=== PATIENT | male | born 1955 | race Two or more races ===

== ENCOUNTER 2018-12-19 15:28 | Inpatient (IN) | payer BC, MEDICARE ==
[2018-12-19] MEDS ORDERED: IV FLUID CONTINUATION 1,000 ML IV ONE (15:40)
[2018-12-19] MEDS ORDERED: LIDOCAINE 1% INJ 10MG/ML (20 ML MDV) SQ ONE (15:50)
[2018-12-19] MEDS ORDERED: MIDAZOLAM 2 MG/2 ML VIAL IVP ONE ×5 (15:55→18:18)
[2018-12-19] MEDS ORDERED: MIDAZOLAM 2 MG/2 ML VIAL IV ONE ×4 (15:55→17:38)
[2018-12-19] MEDS ORDERED: FUROSEMIDE 10 MG/ML 4 ML VIAL IV ONE (15:56)
[2018-12-19] MEDS ORDERED: ONDANSETRON 4 MG/2 ML VIAL IVP ONE ×2 (16:00→16:10)
[2018-12-19] MEDS ORDERED: MORPHINE SULFATE 4 MG/ML SYRINGE IV ONE (16:05)
--- NOTE | 2018-12-19 16:06 | P.CRDCN ---
History of Present Illness History of present illness: This is Dr. Caputo dictating a consult on this patient The patient was interviewed and examined by me IMPRESSION / ASSESSMENT: Subacute ST elevation inferior wall MD with lateral and posterior extension Symptoms for the last 48 hours or more with nausea and vomiting and heartburn epigastric Symptoms started on Thursday Patient went to the urgent care today then transferred to [facility] and then subsequently transferred to [facility] Blood pressure stable per patient is tachycardic Type 2 diabetes on insulin Chronic kidney disease with stage IV chronic kidney disease Hypertension PLAN: Urgent coronary angiography. Discussed with ER physician at [facility] discussed with Dr. Andrea CHÁVEZ Since Thursday the patient has been experiencing heartburn somewhat different from the usual heartburn along with nausea and vomiting and some running stools No chest discomfort no dizziness lightheadedness no palpitations He thought was his usual heartburn but then as the discomfort became worse, today he went to the urgent care. He is visiting from the [facility] Subsequently transferred to [facility] He was evaluated in the ER. EKG was obtained. Troponin sent. Troponin of 19 Thereafter received a call from the ER physician there Patient transferred to [facility] and taken directly to the [facility] ROS: No fever chills or rigors, no cough, phlegm or expectoration, no nausea, vomiting or diarrhea, no hematuria, dysuria, no musculoskeletal complaints, no strokes or seizures, no skin lesions. EXAMINATION: Blood pressure stable but heart rate between 120 to 1:30 beats a minute sinus tachycardia Breath sounds are reduced bilaterally but no rhonchi I don't hear any crackles Heart sounds are soft there's no murmur no rub Abdomen is soft no tenderness Extremities warm REVIEW OF LABS, ECG & MEDICAL DATA Twelve-lead ECG shows sinus tachycardia [address] elevation in the inferior leads with Q waves inferiorly, ST depression V1 and V2 V3 as well as lead 1 and aVL consistent with inferior ST elevation with Q waves in inferior leads Labs reviewed sodium 137 potassium 3.8 BUN 26 creatinine 2.4 was 244 Patient is ALLERGIC to JOVANY inhibitor as it currently on losartan Myalgia with atorvastatin, takes Crestor 5 mg daily Medications and Allergies Home Medications Medication Instructions Recorded Confirmed Type ALPRAZolam [Xanax] 0.25 mg PO HS 12/19/18 12/19/18 History Aspirin EC [Ecotrin Low Dose] 81 mg PO Q48H 12/19/18 12/19/18 History Escitalopram [Lexapro] 10 mg PO DAILY 12/19/18 12/19/18 History Fluticasone Nasal [place] [Flonase 1 spray EA NOSTRIL DAILY 12/19/18 12/19/18 History Nasal [place]] Furosemide [Lasix] 40 mg PO BID 12/19/18 12/19/18 History Insulin Aspart [NovoLOG Flexpen] 6 units SQ AC-TID 12/19/18 12/19/18 History Insulin Glargine,Hum.rec.anlog 36 unit SQ DAILY 12/19/18 12/19/18 History [Lantus Solostar] Losartan [Cozaar] 50 mg PO DAILY 12/19/18 12/19/18 History Metoprolol Tartrate [Lopressor] 100 mg PO BID 12/19/18 12/19/18 History Omeprazole [PriLOSEC] 20 mg PO DAILY 12/19/18 12/19/18 History Potassium Chloride ER [K-Dur 20] 20 meq PO DAILY 12/19/18 12/19/18 History Rosuvastatin Calcium [Crestor] 5 mg PO HS 12/19/18 12/19/18 History Saxagliptin HCl [Onglyza] 5 mg PO DAILY 12/19/18 12/19/18 History amLODIPine [Norvasc] 10 mg PO DAILY 12/19/18 12/19/18 History Allergies Allergy/AdvReac Type Severity Reaction Status Date / Time No Known Allergies Allergy Unverified 12/19/18 15:37
[2018-12-19] MEDS ORDERED: SODIUM CHLORIDE 0.9% 500 ML 500 ML IV ONE ×2 (16:20→18:50)
[2018-12-19] MEDS ORDERED: HEPARIN SODIUM 1,000 UN/ML (10ML VL) IVPB ONE (16:30)
[2018-12-19 16:41] LABS: ABG Base Excess -13.2 mmol/L; ABG HCO3 15 mmol/L (21-25); ABG Oxygen Saturation 89.8 % (94-97); ABG PCO2 43 mmHg (35-45); ABG PO2 78 mmHg (83-108); ABG TCO2 17 mmol/L (19-24)
[2018-12-19 16:49] LABS: ABG PH 7.16 (7.35-7.45)
[2018-12-19] MEDS ORDERED: SODIUM BICARB 8.4% 50 ML SYR (1 MEQ/ML) IV ONE (16:50)
[2018-12-19] MEDS ORDERED: SODIUM BICARB 8.4% 50 ML VIAL (1 MEQ/ML) IV ONE (16:50)
[2018-12-19] MEDS ORDERED: HEPARIN SODIUM 1,000 UN/ML (10ML VL) IV ONE (16:50)
[2018-12-19] MEDS ORDERED: NITROGLYCERIN 1000MCG/10ML SYRINGE INTRACORON ONE (17:02)
[2018-12-19] MEDS ORDERED: NOREPINEPHRINE 4 MG in SODIUM CHLORIDE 0.9% 250 ML IV ONE (17:09)
[2018-12-19] MEDS ORDERED: niCARdipine Syringe (1,000 mcg/10 mL) INTRACORON ONE (17:11)
[2018-12-19] MEDS ORDERED: IOPAMIDOL-370 150ML BTL INJ ONE (17:31)
[2018-12-19] MEDS ORDERED: IOPAMIDOL-370 50ML BTL INJ ONE (17:52)
[2018-12-19] MEDS ORDERED: NITROGLYCERIN SL TABS 0.4 MG TAB SUBLINGUAL PRN (18:01)
[2018-12-19] MEDS ORDERED: ATROPINE SULFATE 0.1 MG/ML 10ML SYRINGE IV PRN (18:01)
[2018-12-19] MEDS ORDERED: MAG HYDROX/AL HYDROX/SIMETH 30 ML CUP PO PRN (18:01)
[2018-12-19] MEDS ORDERED: RX INFO: IV CONTRAST WAS GIVEN 1 EACH MISC MISCELLANE PRN (18:01)
[2018-12-19] MEDS ORDERED: SODIUM CHLORIDE 0.9% 1,000 ML IV SCH (18:15)
[2018-12-19] MEDS ORDERED: CLOPIDOGREL 75 MG TAB OG-TUBE ONE (18:20)
[2018-12-19] MEDS ORDERED: NALOXONE 0.4 MG/ML 1 ML VIAL IV PRN (18:37)
[2018-12-19] MEDS ORDERED: IPRATROPIUM-ALBUTEROL 3 ML NEB INHALATION PRN (18:37)
[2018-12-19 19:20] LABS: Glucose,Whole Blood 297 mg/dL (75-99)
[2018-12-19] MEDS ORDERED: WATER IV ONE (19:30)
[2018-12-19] MEDS ORDERED: DEXTROSE IV ONE (19:30)
[2018-12-19] MEDS ORDERED: HEPARIN SODIUM IV ONE (19:30)
--- NOTE | 2018-12-19 19:34 | XR ---
EXAMINATION TYPE: XR chest 1V portable DATE OF EXAM: 12/19/2018 COMPARISON: NONE HISTORY: Intubation TECHNIQUE: Single frontal view of the chest is obtained. FINDINGS: Endotracheal tube and NG tube are overlying appropriate positions, distal tip the NG tube not included on exam. Exam is expiratory. Perihilar airspace disease is present. No evident pneumotho rax. There are overlying leads present. Patchy bibasilar density likely reflects subsegmental atelect asis. Patient is rotated. IMPRESSION: Correlate for congestive heart failure, pneumonia, pulmonary edema.
[2018-12-19] MEDS: BUDESONIDE 0.5 MG/2 ML NEBU INHALATION SCH (19:41)
[2018-12-19] MEDS: IPRATROPIUM-ALBUTEROL 3 ML NEB INHALATION SCH ×2 (19:41→23:07)
[2018-12-19 19:57] LABS: ABG Base Excess -0.5 mmol/L; ABG HCO3 25 mmol/L (21-25); ABG Oxygen Saturation 98.8 % (94-97); ABG PCO2 41 mmHg (35-45); ABG PH 7.39 (7.35-7.45); ABG PO2 144 mmHg (83-108); ABG TCO2 26 mmol/L (19-24)
[2018-12-19 20:02] LABS: Basophils % (A) 0 %; Eosinophils # (A) 0.3 k/uL (0-0.7); Eosinophils % (A) 2 %; HGB 11.1 gm/dL (13.0-17.5); Lymphocytes # (A) 0.4 k/uL (1.0-4.8); Lymphocytes % (A) 2 %; MCH 29.3 pg (25.0-35.0); MCHC 34.9 g/dL (31.0-37.0); MCV 84.1 fL (80.0-100.0); Mean Platelet Volume 8.3; Monocytes # (A) 0.7 k/uL (0-1.0); Monocytes % (A) 4 %; Neutrophils # (A) 16.3 k/uL (1.3-7.7); Neutrophils % (A) 91 %; Platelet Count 179 k/uL (150-450); RDW 13.9 % (11.5-15.5); WBC 17.9 k/uL (3.8-10.6)
[2018-12-19 20:10] LABS: Magnesium 1.8 mg/dL (1.6-2.3); Phosphorus 3.1 mg/dL (2.5-4.5); Potassium 4.5 mmol/L (3.5-5.1)
[2018-12-19] MEDS: HEPARIN SODIUM,PORCINE 12,500 UNIT in DEXTROSE 5% IN WATER 500 ML IV SCH ×2 (21:49)
--- NOTE | 2018-12-19 22:23 | CC ---
CARDIAC CATHETERIZATION REPORT DATE OF SERVICE: 12/19/2018. PERFORMING PHYSICIAN: Christopher Mendez MD, parent trainer. PROCEDURE PERFORMED: 1. Selective right and left coronary angiogram. 2. Left heart catheterization. 3. Successful placement of Impella in the left ventricle. 4. Selective bilateral common femoral artery angiogram. 5. Successful stenting of the distal left circumflex using 2.5 x 28 mm Xience drug- eluting stent with an excellent angiographic result and reduction of stenosis from 100% to 0%. 6. Successful stenting of the proximal left anterior descending artery using 3.0 x 18 mm Xience drug-eluting stent with an excellent angiographic result and reduction of stenosis from 99% to 0%. INDICATIONS: This is a 63-year-old gentleman who was visiting from [place] with history of diabetes, hypertension, dyslipidemia, and chronic kidney disease, presented to the emergency room at [address] complaining of symptoms of epigastric discomfort associated with nausea and vomiting. He was ruled in for acute non-ST elevation myocardial infarction. He subsequently was transferred to [facility] where he was seen and evaluated by Dr. Caputo who recommended proceeding with coronary angiogram given the abnormal troponin as well as ischemic EKG changes. APPROACH: Right common femoral artery and left common femoral artery. COMPLICATIONS: None. SEDATION: Level of sedation moderate with sedation length of 2 hours and 2 minutes. PROCEDURE DESCRIPTION: After obtaining an informed consent, the patient was brought to the cardiac sleep lab technologist. The right common femoral artery was cannulated using micropuncture technique and a micropuncture wire passed easily. Then I placed a 6-Vietnamese sheath 11 cm in the right common femoral artery. At that point, I did selective right and left coronary angiogram using JR4 and JL4 catheters. Left heart catheterization was performed using 6-Vietnamese pigtail catheter. During the diagnostic heart catheterization, the patient was hypotensive and tachycardic with systolic blood pressure below 90. He was tachycardic with hosting heart rate around 120 beats per minute. Also the left ventricular end-diastolic pressure was 44 mmHg. Given the above data, we did recommend doing the angioplasty by placing the 14-Vietnamese in the left ventricle. Please see please see separate paragraph for the intervention on the patient. SELECTIVE CORONARY ANGIOGRAM: 1. The right coronary artery is a medium caliber vessel and it is a nondominant vessel. The RCA has mild disease only. 2. The left main is a large caliber vessel. It bifurcates into the circumflex and left anterior descending artery. The left main itself appears to be angiographically normal. 3. The left circumflex is a large caliber vessel and is a dominant vessel. The proximal circumflex appeared to be angiographically normal and gives rise into a large first OM branch which appeared to be angiographically normal and bifurcates into 2 subbranches, both appeared to be angiographically normal. The mid left circumflex has intermediate lesion only. It gives rise into a second OM branch which is small caliber vessel, seems to be angiographically normal. The left circumflex distally appeared to have a lesion in the range of 100% and seems to be hazy with possible thrombus formation. Before that lesion, there is another tubular lesion appeared to be in the range of 80% to 90%. The left circumflex after that trifurcate into three subtle branches, they appeared to be angiographically normal. 4. The left anterior descending artery, the proximal LAD just before the bifurcation of a large diagonal branch has a lesion, appears to be in the range of 99.9%. The mid LAD appeared to be angiographically normal. The LAD in the mid to distal portion has a short area of chronic total occlusion. HEMODYNAMICS: The left ventricular end-diastolic pressure was 44 mmHg without significant gradient across the aortic valve. FEMORAL ARTERY ANGIOGRAM: I did selective bilateral common femoral artery angiogram using the sheath and that showed normal femoral arteries. PLACEMENT OF LINE IN THE LEFT VENTRICLE: I did access the left common femoral artery using micropuncture technique, and I placed micropuncture wire through the the micropuncture needle. Then I did place the micropuncture sheath over the micropuncture wire. Before I upgraded my sheath into a 6- Vietnamese sheath, I did take selective left common femoral artery angiogram which revealed good size of the femoral artery and normal left common femoral artery with good puncture site at the mid of the femoral head. At that point, I decided to upgrade my sheath into 14-Vietnamese. I did after that Perclose the left common femoral artery using 2 Perclose at 10 and 2 o'clock. Subsequently, I did I did upgrade my 6-Vietnamese sheath into 14-Vietnamese sheath, which was the Impella sheath using 8-Vietnamese dilator, 10-Vietnamese dilator, and 12-Vietnamese dilator, and that was performed over stiff 0.035 wire which is Impella wire. At that point, I did cross the left ventricle using a pigtail catheter. I did place 0.018 Impella wire in the left ventricle inside the pigtail catheter. Then I pulled the pigtail catheter out. After that I did place the Impella over the 0.018 wire in the left ventricle and that was performed under fluoroscopic guidance, where I did make sure that the Impella was in the left ventricle in a silent area without PVCs and without any ectopy. That was confirmed also under fluoroscopic guidance. After that the Impella was turned on. PCI OF LEFT CIRCUMFLEX AND LAD: Anticoagulation was achieved using heparin with continuous ACT monitoring throughout the procedure. I did engage the left main using an XPZ5 LAD guide. A whisper wire was used to wire the left circumflex and cross the acute total occlusion in the left circumflex where the wire was advanced to the PDA branch of left circumflex. I did predilatation using 2.5 x 12 mm balloon before I deployed x 28 mm Xience drug-eluting stent where the stent was positioned under fluoroscopic guidance and deployed under its nominal pressure. After that, I post dilated the proximal portion of the stent using 3.0 mm balloon. The following angiogram showed good angiographic results. After that, I directed my Whisper wire into the LAD. I did pre-dilate the LAD using 3.0 mm balloon. After that, I deployed a 3.0 x 18 mm Xience in the LAD in the proximal portion where the stent was positioned under fluoroscopy guidance and deployed under its nominal pressure. The following angiogram showed excellent angiographic results. I attempted crossing the distal LAD using the whisper wire just to have a sense of it, but the wire did not go to 20 that this is probably a chronic lesion in the LAD. I decided to stop at that point. CONCLUSION: 1. Acute non-ST elevation myocardial infarction. 2. Cardiogenic shock. 3. Acute total occlusion of the distal left circumflex which is a dominant circumflex. 4. 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 5. Successful placement of Impella in the left ventricle. 6. Successful stenting of the distal left circumflex using 2.5 x 28 mm Xience drug- eluting stent, which was postdilated using 3 mm balloon with excellent angiographic results and reduction of stenosis from 100% to 0%. 7. Successful stenting of the proximal left anterior descending artery using 3.25 x 18 mm Xience drug-eluting stent with an excellent angiographic result and reduction of stenosis from 99% to 0%. POST PROCEDURE MANAGEMENT: 1. Dual anti-platelet therapy. 2. Risk factor modification. 3. The patient will be admitted to the intensive care unit with continuous support by the Impella. 4. Continue heparin drip to achieve an ACT around 175. 5. An echocardiogram with Doppler to assess the LV function. 6. Follow up with the patient. MMODL / IJN: [id number] /
[2018-12-19 22:27] LABS: Basophils % (A) 0 %; Eosinophils # (A) 0.1 k/uL (0-0.7); Eosinophils % (A) 0 %; HCT 31.4 % (39.0-53.0); HGB 10.6 gm/dL (13.0-17.5); Lymphocytes # (A) 0.9 k/uL (1.0-4.8); Lymphocytes % (A) 5 %; MCH 27.4 pg (25.0-35.0); MCHC 33.8 g/dL (31.0-37.0); Mean Platelet Volume 10.7; Monocytes # (A) 0.8 k/uL (0-1.0); Monocytes % (A) 5 %; Neutrophils # (A) 14.4 k/uL (1.3-7.7); Neutrophils % (A) 89 %; Platelet Count 186 k/uL (150-450); RBC 3.87 m/uL (4.30-5.90); WBC 16.3 k/uL (3.8-10.6)
[2018-12-19 22:38] LABS: INR 1.1 (<1.2); Partial Thromboplastin Time 72.1 sec (22.0-30.0); Prothrombin Time 11.5 sec (9.0-12.0)
[2018-12-19] MEDS: PROPOFOL 1,000 MG in EMPTY BAG 1 BAG IV SCH (23:12)
[2018-12-19 23:36] LABS: Appearance,Urine Cloudy (Clear); Bacteria,Urine Rare /hpf; Bilirubin,Urine Negative (Negative); Blood,Urine Large (Negative); Color,Urine Yellow; Glucose,Urine (UA) 3+ (Negative); Ketones,Urine 1+ (Negative); Leukocyte Esterase,Urine Large (Negative); Mucus,Urine Rare /hpf; Nitrite,Urine Negative (Negative); PH, Urine 5.5 (5.0-8.0); Protein,Urine Trace (Negative); RBC,Urine >182 /hpf (0-5); Squamous Epithelial Cell,Urine 1 /hpf (0-4); Urobilinogen,Urine <2.0 mg/dL (<2.0)
[2018-12-19 23:49] LABS: Specific Gravity,Urine >1.050 (1.001-1.035)
--- NOTE | 2018-12-19 23:49 | XR ---
EXAM: XR Chest, 1 View CLINICAL HISTORY: ITS.REASON XR Reason: OG placement TECHNIQUE: Frontal view of the chest. COMPARISON: 12/19/18 chest x-ray IMPRESSION: OG tube enters the stomach and tip is projected off the [id number]. ET tube terminates 6 cm in the luz.
[2018-12-20] MEDS ORDERED: HEPARIN SODIUM,PORCINE 5,000 UNIT/ML 1 ML VIAL SQ SCH
[2018-12-20] MEDS ORDERED: INSULIN ASPART (NovoLOG) 100 UNIT/ML VIAL SQ SCH (00:45)
[2018-12-20] MEDS: ATORVASTATIN 80 MG TAB PO SCH ×2 (00:48→20:51)
[2018-12-20 00:52] LABS: Glucose,Whole Blood 289 mg/dL (75-99)
[2018-12-20] MEDS: PROPOFOL 1,000 MG in EMPTY BAG 1 BAG IV SCH ×3 (00:52→08:13)
[2018-12-20] MEDS: CHLORHEXIDINE GLUCONATE 15 ML CUP MUCOUS MEM SCH ×2 (01:07→08:24)
[2018-12-20] MEDS: IPRATROPIUM-ALBUTEROL 3 ML NEB INHALATION SCH ×5 (03:06→20:01)
[2018-12-20] MEDS: NOREPINEPHRINE 4 MG in SODIUM CHLORIDE 0.9% 250 ML IV SCH (03:13)
[2018-12-20 04:31] LABS: ABG Base Excess 2.5 mmol/L; ABG HCO3 27 mmol/L (21-25); ABG Oxygen Saturation 99.8 % (94-97); ABG PCO2 38 mmHg (35-45); ABG PH 7.45 (7.35-7.45); ABG PO2 209 mmHg (83-108); ABG TCO2 28 mmol/L (19-24)
[2018-12-20 04:47] LABS: Basophils % (A) 0 %; Eosinophils # (A) 0.1 k/uL (0-0.7); Eosinophils % (A) 0 %; HCT 29.7 % (39.0-53.0); HGB 10.2 gm/dL (13.0-17.5); Lymphocytes # (A) 1.2 k/uL (1.0-4.8); Lymphocytes % (A) 10 %; MCH 28.3 pg (25.0-35.0); MCHC 34.4 g/dL (31.0-37.0); MCV 82.2 fL (80.0-100.0); Monocytes # (A) 0.8 k/uL (0-1.0); Monocytes % (A) 6 %; Neutrophils # (A) 9.9 k/uL (1.3-7.7); Neutrophils % (A) 83 %; Platelet Count 169 k/uL (150-450); RBC 3.61 m/uL (4.30-5.90); RDW 13.9 % (11.5-15.5); WBC 11.9 k/uL (3.8-10.6)
[2018-12-20 04:58] LABS: Calcium 7.8 mg/dL (8.4-10.2); Magnesium 1.9 mg/dL (1.6-2.3); Phosphorus 2.4 mg/dL (2.5-4.5); Potassium 3.7 mmol/L (3.5-5.1)
[2018-12-20 06:31] LABS: Glucose,Whole Blood 222 mg/dL (75-99)
[2018-12-20 06:59] LABS: Partial Thromboplastin Time 24.9 sec (22.0-30.0); Prothrombin Time 10.6 sec (9.0-12.0)
[2018-12-20] MEDS ORDERED: HEPARIN SODIUM,PORCINE 5,000 UNIT/ML 1 ML VIAL IV PRN (07:10)
--- NOTE | 2018-12-20 07:10 | XR ---
EXAMINATION TYPE: XR chest 1V portable DATE OF EXAM: 12/20/2018 COMPARISON: Prior chest x-ray 12/19/2018 HISTORY: Intubated TECHNIQUE: Single frontal view of the chest is obtained. FINDINGS: Endotracheal tube and NG tube are overlying appropriate positions. Additional lead present within the heart coursing from the inferior margin of the exam as on prior exam. Bibasilar increased densities present. There is no evident pneumothorax. Heart size is stable. Perihilar vascular indist inctness persists. IMPRESSION: There may be a component of volume overload, interstitial edema. Correlate for basilar a telectasis versus edema, pneumonia felt to be less likely.
[2018-12-20] MEDS: INSULIN ASPART (NovoLOG) 100 UNIT/ML VIAL SQ SCH ×4 (07:14→20:51)
[2018-12-20] MEDS ORDERED: HEPARIN SOD,PORK IN 0.45% NACL 25,000 UNIT in 0.45% NACL 1 250ML.BAG IV SCH (07:15)
[2018-12-20] MEDS: BUDESONIDE 0.5 MG/2 ML NEBU INHALATION SCH ×2 (07:16→20:01)
[2018-12-20] MEDS ORDERED: POTASSIUM CHLORIDE 10 MEQ in WATER FOR INJECTION 1 100ML.BAG IVPB STA (08:02)
--- NOTE | 2018-12-20 08:12 | P.CNPUL ---
History of Present Illness Consult date: 12/20/18 Chief complaint: Acute chest pain History of present illness: A pleasant 63-year-old male patient who was visiting from [place] and he developed chest pain and initially went to [facility] where he was diagnosed having a subacute ST elevation inferior wall myocardial infarction with lateral and posterior extension. The patient got transferred to our hospital for further evaluation and management. The patient is known to have diabetes, hypertension and chronic renal failure and the patient has chronic stage 4 kidney disease. Was immediately taken to the Certified Fire Investigator. The patient was an acute cardiogenic shock. Left ventricular end-diastolic pressure was measured to be at 44 mmHg. He was intubated electively. Following that a cardiac catheterization was done and the patient was found to have total occlusion of the distal circumflex with a dominant circumflex, critical disease involving the proximal LAD and chronic occlusion of the LAD distally, and Liya was inserted in the left ventricle, successful stenting of the distal circumflex was done with drug-eluting stent. Successful stenting of the LAD was also done with drug-eluting stent. The patient was started on dual antiplatelet agent. The patient was placed on low-dose pressors and currently the patient is on levo fed chronic at 0.01 mg per KG per minute. The patient got transferred to the intensive care unit and the patient was quite sedated on Diprivan This morning, the patient is arousable. The patient on an assist-control mode of ventilation. PEEP is at 10 with an FiO2 of 40% tidal volume of 500. The blood gases showed a pH of 7.4-5 with a pCO2 of 38 and pO2 of 219 and this was on FiO2 of 80% pH chest x-ray showing a mild component of pulmonary edema. ET tube is in a good location. In paralyzed in good location. Patient is producing adequate amount of urine output. The patient is warm and has equal and symmetrical pulses in all 4 extremities. His arousable. Follows commands and answering questions appropriately as the Diprivan is being weaned off. The patient has a Impala catheter in his left femoral artery. Creatinine is at 1.9 and stable for now. Review of Systems ROS unobtainable: due to endotracheal tube Past Medical History Past Medical History: Coronary Artery Disease (CAD), Heart Failure, Diabetes Mellitus, GERD/Reflux, Hyperlipidemia, Hypertension, Renal Disease History of Any Multi-Drug Resistant Organisms: None Reported Additional Past Surgical History / Comment(s): surgery on thumb Past Anesthesia/Blood Transfusion Reactions: No Reported Reaction Past Psychological History: Anxiety, Depression Smoking Status: Former smoker Past Alcohol Use History: Occasional Past Drug Use History: None Reported Medications and Allergies Home Medications Medication Instructions Recorded Confirmed Type ALPRAZolam [Xanax] 0.25 mg PO HS 12/19/18 12/19/18 History Aspirin EC [Ecotrin Low Dose] 81 mg PO Q48H 12/19/18 12/19/18 History Escitalopram [Lexapro] 10 mg PO DAILY 12/19/18 12/19/18 History Fluticasone Nasal [place] [Flonase 1 spray EA NOSTRIL DAILY 12/19/18 12/19/18 History Nasal [place]] Furosemide [Lasix] 40 mg PO BID 12/19/18 12/19/18 History Insulin Aspart [NovoLOG Flexpen] 6 units SQ AC-TID 12/19/18 12/19/18 History Insulin Glargine,Hum.rec.anlog 36 unit SQ DAILY 12/19/18 12/19/18 History [Lantus Solostar] Losartan [Cozaar] 50 mg PO DAILY 12/19/18 12/19/18 History Metoprolol Tartrate [Lopressor] 100 mg PO BID 12/19/18 12/19/18 History Omeprazole [PriLOSEC] 20 mg PO DAILY 12/19/18 12/19/18 History Potassium Chloride ER [K-Dur 20] 20 meq PO DAILY 12/19/18 12/19/18 History Rosuvastatin Calcium [Crestor] 5 mg PO HS 12/19/18 12/19/18 History Saxagliptin HCl [Onglyza] 5 mg PO DAILY 12/19/18 12/19/18 History amLODIPine [Norvasc] 10 mg PO DAILY 12/19/18 12/19/18 History Allergies Allergy/AdvReac Type Severity Reaction Status Date / Time No Known Allergies Allergy Unverified 12/19/18 15:37 Physical Exam Vitals: Vital Signs Temp Pulse Resp BP Pulse Ox 12/20/18 08:00 99.7 F H 88 25 H 93 L 12/20/18 07:35 88 12/20/18 07:16 88 12/20/18 07:00 77 16 98 12/20/18 06:00 78 16 97 12/20/18 05:00 79 16 96 12/20/18 04:00 98.4 F 78 16 99 12/20/18 03:15 75 12/20/18 03:08 74 12/20/18 03:00 75 16 99 12/20/18 02:00 75 16 98 12/20/18 01:00 78 16 98 12/20/18 00:00 98.5 F 80 16 98 12/19/18 23:14 78 12/19/18 23:07 78 12/19/18 23:00 80 16 99 12/19/18 22:00 77 16 99/75 98 12/19/18 21:00 80 16 106/81 98 12/19/18 20:00 98.2 F 84 16 107/79 99 12/19/18 19:52 83 12/19/18 19:41 84 21 Intake and Output 12/19/18 12/20/18 12/20/18 22:59 06:59 14:59 Intake Total 483 857.714 293.286 Output Total 540 65 Balance 483 317.714 228.286 Intake: IV 483 706 219 Dextrose 5% in Water 1, 220 40 000 ml @ 20 mls/hr IV . Q24H ONE with Heparin Sodium (1,000 Unit/ml) 50 unit Rx#:[id number] Sodium Chloride 0.9% 1, 420 150 000 ml @ 75 mls/hr IV . [id number] [facility] [place] [place] Rx#:[id number] femoral pressure bag 33 23 right wrist a-line bag 33 6 Intake, IV Titration 151.714 74.286 Amount Norepinephrine 4 mg In 15.394 20.065 Sodium Chloride 0.9% 250 ml @ 0.03 MCG/KG/MIN 10. 378 mls/hr IV .Q24H [facility] Rx#:[id number] Propofol 1,000 mg In 136.320 54.221 Empty Bag 1 bag @ Titrate IV .Q0M [facility] Rx#: [id number] Output: Urine 540 65 Other: Voiding Method Indwelling Catheter Indwelling Catheter Weight 90.8 kg 91.9 kg ABP, PAP, CO, CI - Last 8 Hours Arterial Blood Pressure 113/58 Arterial Blood Pressure 107/56 Arterial Blood Pressure 104/59 Arterial Blood Pressure 96/55 Arterial Blood Pressure 102/60 Arterial Blood Pressure 103/61 Arterial Blood Pressure 105/60 Arterial Blood Pressure 107/63 Gen. appearance, comfortable likely distress intubated on mechanical ventilator. Head exam was generally normal. There was no scleral icterus or corneal arcus. Mucous membranes were moist. The patient has an orogastric and orotracheal tube are both in place Neck was supple and without jugular venous distension, thyromegaly, or carotid bruits. Carotids were easily palpable bilaterally. There was no adenopathy. Lungs were clear to auscultation and percussion, and with normal diaphragmatic excursion. No wheezes or rales were noted. Cardiac exam revealed the PMI to be normally situated and sized. The rhythm was regular and no extrasystoles were noted during several minutes of auscultation. The first and second heart sounds were normal and physiologic splitting of the second heart sound was noted. There were no murmurs, rubs, clicks, or gallops. Abdominal exam revealed normal bowel sounds. The abdomen was soft, non-tender, and without masses, organomegaly, or appreciable enlargement of the abdominal aorta. Extremities are equal and symmetrical pulses in the extremity is warm and there is no cyanosis or clubbing. The patient has a 14-Portuguese Impala catheter in the left femoral artery. Examination of the skin revealed no evidence of significant rashes, suspicious appearing nevi or other concerning lesions. Neurologically sedated but it's arousable and following simple commands and answering to simple orders. No focal neurological deficit. Cranial nerves are intact. Results - Laboratory Findings CBC and BMP: 12/20/18 04:30 12/20/18 04:30 ABG ABG pH 7.45 (7.35-7.45) 12/20/18 04:30 ABG pCO2 38 mmHg (35-45) 12/20/18 04:30 ABG pO2 209 mmHg (83-108) H 12/20/18 04:30 ABG O2 Saturation 99.8 % (94-97) H 12/20/18 04:30 PT/INR, D-dimer PT 10.6 sec (9.0-12.0) 12/20/18 04:30 INR 1.0 (<1.2) 12/20/18 04:30 Abnormal lab findings: Abnormal Labs 12/19/18 12/19/18 12/19/18 02:17 16:37 19:08 WBC 17.9 H RBC 3.80 L Hgb 11.1 L Hct 32.0 L RDW Neutrophils # 16.3 H Lymphocytes # 0.4 L APTT ABG pH 7.16 L* ABG pO2 78 L ABG HCO3 15 L ABG Total CO2 17 L ABG O2 Saturation 89.8 L BUN Creatinine Glucose POC Glucose (mg/dL) 297 H Calcium Phosphorus Ur Specific [place] Urine Protein Urine Glucose (UA) Urine Ketones Urine Blood Ur Leukocyte Esterase Urine RBC Urine WBC Urine Bacteria Urine Mucus 12/19/18 12/19/18 12/19/18 19:35 19:52 22:15 WBC 16.3 H RBC 3.87 L Hgb 10.6 L Hct 31.4 L RDW 16.0 H Neutrophils # 14.4 H Lymphocytes # 0.9 L APTT ABG pH ABG pO2 144 H ABG HCO3 ABG Total CO2 26 H ABG O2 Saturation 98.8 H BUN 28 H Creatinine 1.95 H Glucose 287 H POC Glucose (mg/dL) Calcium 8.0 L Phosphorus Ur Specific [place] Urine Protein Urine Glucose (UA) Urine Ketones Urine Blood Ur Leukocyte Esterase Urine RBC Urine WBC Urine Bacteria Urine Mucus 12/19/18 12/19/18 12/20/18 22:15 23:08 00:39 WBC RBC Hgb Hct RDW Neutrophils # Lymphocytes # APTT 72.1 H ABG pH ABG pO2 ABG HCO3 ABG Total CO2 ABG O2 Saturation BUN Creatinine Glucose POC Glucose (mg/dL) 289 H Calcium Phosphorus Ur Specific [place] >1.050 H Urine Protein Trace H Urine Glucose (UA) 3+ H Urine Ketones 1+ H Urine Blood Large H Ur Leukocyte Esterase Large H Urine RBC >182 H Urine WBC 45 H Urine Bacteria Rare H Urine Mucus Rare H 12/20/18 12/20/18 12/20/18 04:30 04:30 04:30 WBC 11.9 H RBC 3.61 L Hgb 10.2 L Hct 29.7 L RDW Neutrophils # 9.9 H Lymphocytes # APTT ABG pH ABG pO2 209 H ABG HCO3 27 H ABG Total CO2 28 H ABG O2 Saturation 99.8 H BUN 28 H Creatinine 1.99 H Glucose 206 H POC Glucose (mg/dL) Calcium 7.8 L Phosphorus 2.4 L Ur Specific [place] Urine Protein Urine Glucose (UA) Urine Ketones Urine Blood Ur Leukocyte Esterase Urine RBC Urine WBC Urine Bacteria Urine Mucus 12/20/18 06:20 WBC RBC Hgb Hct RDW Neutrophils # Lymphocytes # APTT ABG pH ABG pO2 ABG HCO3 ABG Total CO2 ABG O2 Saturation BUN Creatinine Glucose POC Glucose (mg/dL) 222 H Calcium Phosphorus Ur Specific [place] Urine Protein Urine Glucose (UA) Urine Ketones Urine Blood Ur Leukocyte Esterase Urine RBC Urine WBC Urine Bacteria Urine Mucus - Diagnostic Findings Chest x-ray: image reviewed Assessment and Plan Plan: Assessment [address] segment elevation inferior myocardial wall infarction with lateral and posterior extension, status post cardiac catheterization and stenting of the circumflex and LAD, and the circumflex was a dominant vessel 2 cardiogenic shock secondary to above, status post Impala catheter insertion for hemodynamic support, currently on low dose of norepinephrine infusion for blood pressure control 3 coronary artery disease 4 diabetes mellitus type 2 maintained on insulin outpatient basis 5 chronic stage IV kidney disease 6 hypertension 7 hyperlipidemia Plan Discussed the case with cardiac team. The patient is doing extremely well. The patient's hemodynamics is stable. We'll continue vent support. We'll wean off the sedation. We'll check set of weaning parameters. We'll give the patient is point is breathing trial if the weaning parameters are adequate and will consider the patient for extubation. I dropped down the PEEP to 5. Also the chest x-ray showing a mild component of pulmonary vessel congestion. Nevertheless, the patient is actually taking well. Hemodynamically, the patient is on 0.01 g per KG per minute of norepinephrine infusion. We discussed the possibility of removing the Impala catheter today. This will be done at the bed side by interventional cardiology. Continue bronchodilators. Continue dual platelet therapy. We'll initiate heparin once the Impala catheter is removed. We'll initiate statins. We'll continue to follow and make further recommendations based on his progression. Condition is quite critical. The patient's condition is very much much stabilized and will use insulin sliding scale coverage for blood sugar control. Time with Patient: Greater than 30
[2018-12-20] MEDS: PANTOPRAZOLE 40 MG/10 ML VIAL IV SCH (08:17)
[2018-12-20] MEDS: ASPIRIN 325 MG TAB PO SCH (09:20)
--- NOTE | 2018-12-20 10:06 | CONS ---
CONSULTATION REASON FOR CONSULT: Renal failure. HISTORY OF PRESENT ILLNESS: Patient is a 63-year-old male who was admitted to the hospital with complaints of chest pain. He actually had a heartburn-like sensation. It was associated with nausea and vomiting. The patient normally resides in the [facility] and was visiting. He does have a history of underlying chronic kidney disease. Baseline creatinine not known at this time. Patient states that his renal function was stable when he was last seen by his master lay out specialist in the [facility]. The patient was taken to the geotechnical laboratory technician yesterday. He had cardiac catheterization with successful stenting of the distal left circumflex and proximal left anterior descending artery. During the catheterization, patient developed respiratory distress and was severely hypotensive. He was tachycardic with heart beat around 120 and he was therefore intubated. Patient also had intra-aortic balloon pump, which is actually Impella placed. He is currently awake. He is comfortable. He denies any significant complaints. He has had urine output about 40 to 50 mL an hour. IV fluids running at 75 mL an hour. Serum creatinine was 1.9 mg/dL today. It was 1.95 mg/dL yesterday. We do not have any previous labs available for comparison. PAST MEDICAL HISTORY: Hypertension, chronic kidney disease baseline renal function not known at this time, hypertension, type 2 diabetes, hyperlipidemia, gastroesophageal reflux disease, anxiety, depression. PAST SURGICAL HISTORY: SOCIAL HISTORY: Former smoker. No history of drug abuse or alcohol. MEDICATIONS: Medications at home prior to admission included Xanax, aspirin, Lexapro, Lasix insulin, Cozaar, Lopressor, Prilosec, potassium, Crestor, Onglyza, Norvasc. ALLERGIES: None. REVIEW OF SYSTEMS: As per HPI. Other systems negative. PHYSICAL EXAMINATION: On examination, patient is comfortable, awake, alert, oriented x3. He is not in any acute distress. Breath sounds are heard bilaterally. The patient is following and commands. Abdomen is soft, nontender. Examination of lower extremities shows no significant edema. TOBACCO SIZER exam is intact. Patient moving all 4 extremities. LABS: Labs show hemoglobin 10.2, sodium 137, potassium 3.7, chloride 106, CO2 is 26, BUN 28, serum creatinine 1.9. Hemoglobin was 11.1 g/dL. UA shows trace protein, RBCs 182, WBCs 45. ASSESSMENT: 1. Chronic kidney disease NKF stage IV most likely. Baseline renal function not known. There may be a component of acute kidney injury. We will obtain baseline labs sometime today when patient's comes over with the patient's phone which has his previous labs. In the meantime, I will Hep-Lock the IV fluids as patient does have evidence of mild volume overload. Continue to avoid any nephrotoxic agents. Avoid hypotension. 2. Status post acute myocardial infarction. 3. Status post stenting of LAD and circumflex. 4. Acute hypoxic respiratory failure, currently on the vent with plans for possible extubation. 5. Hematuria related to Ariza catheter placement and recent anticoagulation. 6. Cardiogenic shock, status post Impala. PLAN: Decrease IV fluids. Repeat labs in a.m. Monitor urine output. Avoid nephrotoxic medications. We will obtain baseline labs sometime today. Thank you for this consultation. We will continue to follow the patient with you during his hospitalization. GIOVANNI / SHAKEELN: [id number] /
[2018-12-20] MEDS: CARVEDILOL 1.563 MG TAB PO SCH ×2 (10:23→16:55)
[2018-12-20 11:28] LABS: Glucose,Whole Blood 155 mg/dL (75-99)
--- NOTE | 2018-12-20 11:35 | ECHOF ---
Referral Reason:IN MEASUREMENTS -------- HEIGHT: 172.7 cm WEIGHT: 90.7 kg BP: 104/59 RVIDd: 2.5 cm (< 3.3) IVSd: 1.3 cm (0.6 - 1.1) LVIDd: 4.5 cm (3.9 - 5.3) LVPWd: 1.3 cm (0.6 - 1.1) IVSs: 1.5 cm LVIDs: 3.0 cm LVPWs: 1.7 cm LA Diam: 3.9 cm (2.7 - 3.8) LAESV Index (A-L): 26.96 ml/m Ao Diam: 3.7 cm (2.0 - 3.7) AV Cusp: 2.1 cm (1.5 - 2.6) MV EXCURSION: 16.312 mm (> 18.000) MV EF SLOPE: 101 mm/s (70 - 150) EPSS: 0.9 cm MV E Dipesh: 0.91 m/s MV DecT: 149 ms MV A Dipesh: 0.72 m/s MV E/A Ratio: 1.27 RAP: 5.00 mmHg RVSP: 32.63 mmHg FINDINGS -------- This was a technically difficult study with suboptimal views. The left ventricular size is normal. There is mild concentric left ventricular hypertrophy. Overa ll left ventricular systolic function is mild-moderately impaired with, an EF between 40 - 45 %. Ba prakash inferior LV wall motion is hypokinetic. Mid inferior LV wall motion is hypokinetic. Apical lateral LV wall motion is hypokinetic. Apical inferior LV wall motion is hypokinetic. Apical se ptum LV wall motion is hypokinetic. The right ventricle is normal in size. Normal LA size by volume 22+/-6 ml/m2. The right atrium is normal in size. 3 ml of Lumason was utilized for enhancement of images. There is mild aortic valve sclerosis. There is mild aortic regurgitation. Mild mitral annular calcification present. Mild mitral regurgitation is present. Mild tricuspid regurgitation present. Right ventricular systolic pressure is normal at < 35 mmHg. The pulmonic valve was not well visualized. The aortic root size is normal. Normal inferior vena cava with normal inspiratory collapse consistent with estimated right atrial pre ssure of 5 mmHg. There is no pericardial effusion. CONCLUSIONS -------- 1. This was a technically difficult study with suboptimal views. 2. The left ventricular size is normal. 3. There is mild concentric left ventricular hypertrophy. 4. Overall left ventricular systolic function is mild-moderately impaired with, an EF between 40 - 45 %. 5. Basal inferior LV wall motion is hypokinetic. 6. Mid inferior LV wall motion is hypokinetic. 7. Apical lateral LV wall motion is hypokinetic. 8. Apical inferior LV wall motion is hypokinetic. 9. Apical septum LV wall motion is hypokinetic. 10. The right ventricle is normal in size. 11. Normal LA size by volume 22+/-6 ml/m2. 12. The right atrium is normal in size. 13. 3 ml of Lumason was utilized for enhancement of images. 14. There is mild aortic valve sclerosis. 15. There is mild aortic regurgitation. 16. Mild mitral annular calcification present. 17. Mild mitral regurgitation is present. 18. Mild tricuspid regurgitation present. 19. Right ventricular systolic pressure is normal at < 35 mmHg. 20. The pulmonic valve was not well visualized. 21. The aortic root size is normal. 22. Normal inferior vena cava with normal inspiratory collapse consistent with estimated right atrial pressure of 5 mmHg. 23. There is no pericardial effusion. CENTRAL OFFICE TROUBLE SHOOTER: Estefany Barnard RDCS
[2018-12-20] MEDS ORDERED: HYDROmorphone 1 MG/ML 1 ML SYRINGE ONE (12:25)
[2018-12-20] MEDS ORDERED: HYDROmorphone 1 MG/ML 1 ML SYRINGE IVP STA (12:31)
[2018-12-20] MEDS ORDERED: FUROSEMIDE 40 MG TAB PO ONE (13:00)
[2018-12-20 13:41] VITALS: BMI 30.8
[2018-12-20] MEDS: CLOPIDOGREL 75 MG TAB PO SCH (13:47)
--- NOTE | 2018-12-20 15:26 | P.PN ---
Subjective Patient has been extubated. He is doing well. No chest discomfort. Blood pressure this morning was 180 no 50 mmHg pulse rate 80-90 beats a minute sinus and regular Breath sounds are reduced bilaterally Heart sounds. Soft no murmurs or gallops or rub Abdomen soft He still has the impella device in place Labs are reviewed Hemoglobin 10.2 Sodium 137, potassium 3.7, BUN 28, creatinine 1.99, magnesium 1.9 Impression Acute myocardial infarction Severe heart failure with elevated LVEDP and sinus tachycardia impending cardiac shock Multivessel coronary artery disease Chronic kidney disease Reduced LV systolic function ejection fraction 40 of 45% with wall motion abnormalities inferiorly Status post impella device basement and coronary stenting Cardiogenic shock following diagnostic catheterization Multivessel stenting, distal left circumflex, proximal LAD Plan By mouth Lasix Low-dose carvedilol half a tablet of 3.125 g twice daily and watch blood pressure Removal of IM PEL LA device today Gradual maximization of heart. Medications Norepinephrine drip has been stopped completely this morning and his blood pressure has been stable Objective - Vital Signs Vital signs: Vital Signs Temp 99.7 F H 12/20/18 08:00 Pulse 96 12/20/18 15:00 Resp 16 12/20/18 15:00 BP 99/75 12/19/18 22:00 Pulse Ox 92 L 12/20/18 15:00 Intake & Output 12/19/18 12/20/18 12/20/18 18:59 06:59 18:59 Intake Total 483 857.714 613.968 Output Total 540 300 Balance 483 317.714 313.968 Weight 90.8 kg 91.9 kg 91.9 kg Intake: IV 483 706 527 Dextrose 5% in Water 1, 220 120 000 ml @ 20 mls/hr IV . Q24H ONE with Heparin Sodium (1,000 Unit/ml) 50 unit Rx#:[id number] Sodium Chloride 0.9% 1, 420 345 000 ml @ 75 mls/hr IV . [id number] [facility] Rx#:[id number] femoral pressure bag 33 35 right wrist a-line bag 33 27 Intake, IV Titration 151.714 86.968 Amount Norepinephrine 4 mg In 15.394 20.065 Sodium Chloride 0.9% 250 ml @ 0.03 MCG/KG/MIN 10. 378 mls/hr IV .Q24H [facility] Rx#:[id number] Propofol 1,000 mg In 136.320 66.903 Empty Bag 1 bag @ Titrate IV .Q0M [facility] Rx#: [id number] Output: Urine 540 300 Other: Voiding Method Indwelling Catheter Indwelling Catheter ABP, PAP, CO, CI - Last Documented Arterial Blood Pressure 124/46 - Labs CBC & Chem 7: 12/20/18 04:30 12/20/18 04:30 Labs: Abnormal Lab Results - Last 24 Hours (Table) 12/19/18 12/19/18 12/19/18 Range/Units 02:17 16:37 19:08 WBC 17.9 H (3.8-10.6) k/uL RBC 3.80 L (4.30-5.90) m/uL Hgb 11.1 L (13.0-17.5) gm/dL Hct 32.0 L (39.0-53.0) % RDW (11.5-15.5) % Neutrophils # 16.3 H (1.3-7.7) k/uL Lymphocytes # 0.4 L (1.0-4.8) k/uL APTT (22.0-30.0) sec ABG pH 7.16 L* (7.35-7.45) ABG pO2 78 L (83-108) mmHg ABG HCO3 15 L (21-25) mmol/L ABG Total CO2 17 L (19-24) mmol/L ABG O2 Saturation 89.8 L (94-97) % BUN (9-20) mg/dL Creatinine (0.66-1.25) mg/dL Glucose (74-99) mg/dL POC Glucose (mg/dL) 297 H (75-99) mg/dL Calcium (8.4-10.2) mg/dL Phosphorus (2.5-4.5) mg/dL Ur Specific [place] (1.001-1.035) Urine Protein (Negative) Urine Glucose (UA) (Negative) Urine Ketones (Negative) Urine Blood (Negative) Ur Leukocyte Esterase (Negative) Urine RBC (0-5) /hpf Urine WBC (0-5) /hpf Urine Bacteria (None) /hpf Urine Mucus (None) /hpf 12/19/18 12/19/18 12/19/18 Range/Units 19:35 19:52 22:15 WBC 16.3 H (3.8-10.6) k/uL RBC 3.87 L (4.30-5.90) m/uL Hgb 10.6 L (13.0-17.5) gm/dL Hct 31.4 L (39.0-53.0) % RDW 16.0 H (11.5-15.5) % Neutrophils # 14.4 H (1.3-7.7) k/uL Lymphocytes # 0.9 L (1.0-4.8) k/uL APTT (22.0-30.0) sec ABG pH (7.35-7.45) ABG pO2 144 H (83-108) mmHg ABG HCO3 (21-25) mmol/L ABG Total CO2 26 H (19-24) mmol/L ABG O2 Saturation 98.8 H (94-97) % BUN 28 H (9-20) mg/dL Creatinine 1.95 H (0.66-1.25) mg/dL Glucose 287 H (74-99) mg/dL POC Glucose (mg/dL) (75-99) mg/dL Calcium 8.0 L (8.4-10.2) mg/dL Phosphorus (2.5-4.5) mg/dL Ur Specific [place] (1.001-1.035) Urine Protein (Negative) Urine Glucose (UA) (Negative) Urine Ketones (Negative) Urine Blood (Negative) Ur Leukocyte Esterase (Negative) Urine RBC (0-5) /hpf Urine WBC (0-5) /hpf Urine Bacteria (None) /hpf Urine Mucus (None) /hpf 12/19/18 12/19/18 12/20/18 Range/Units 22:15 23:08 00:39 WBC (3.8-10.6) k/uL RBC (4.30-5.90) m/uL Hgb (13.0-17.5) gm/dL Hct (39.0-53.0) % RDW (11.5-15.5) % Neutrophils # (1.3-7.7) k/uL Lymphocytes # (1.0-4.8) k/uL APTT 72.1 H (22.0-30.0) sec ABG pH (7.35-7.45) ABG pO2 (83-108) mmHg ABG HCO3 (21-25) mmol/L ABG Total CO2 (19-24) mmol/L ABG O2 Saturation (94-97) % BUN (9-20) mg/dL Creatinine (0.66-1.25) mg/dL Glucose (74-99) mg/dL POC Glucose (mg/dL) 289 H (75-99) mg/dL Calcium (8.4-10.2) mg/dL Phosphorus (2.5-4.5) mg/dL Ur Specific [place] >1.050 H (1.001-1.035) Urine Protein Trace H (Negative) Urine Glucose (UA) 3+ H (Negative) Urine Ketones 1+ H (Negative) Urine Blood Large H (Negative) Ur Leukocyte Esterase Large H (Negative) Urine RBC >182 H (0-5) /hpf Urine WBC 45 H (0-5) /hpf Urine Bacteria Rare H (None) /hpf Urine Mucus Rare H (None) /hpf 12/20/18 12/20/18 12/20/18 Range/Units 04:30 04:30 04:30 WBC 11.9 H (3.8-10.6) k/uL RBC 3.61 L (4.30-5.90) m/uL Hgb 10.2 L (13.0-17.5) gm/dL Hct 29.7 L (39.0-53.0) % RDW (11.5-15.5) % Neutrophils # 9.9 H (1.3-7.7) k/uL Lymphocytes # (1.0-4.8) k/uL APTT (22.0-30.0) sec ABG pH (7.35-7.45) ABG pO2 209 H (83-108) mmHg ABG HCO3 27 H (21-25) mmol/L ABG Total CO2 28 H (19-24) mmol/L ABG O2 Saturation 99.8 H (94-97) % BUN 28 H (9-20) mg/dL Creatinine 1.99 H (0.66-1.25) mg/dL Glucose 206 H (74-99) mg/dL POC Glucose (mg/dL) (75-99) mg/dL Calcium 7.8 L (8.4-10.2) mg/dL Phosphorus 2.4 L (2.5-4.5) mg/dL Ur Specific [place] (1.001-1.035) Urine Protein (Negative) Urine Glucose (UA) (Negative) Urine Ketones (Negative) Urine Blood (Negative) Ur Leukocyte Esterase (Negative) Urine RBC (0-5) /hpf Urine WBC (0-5) /hpf Urine Bacteria (None) /hpf Urine Mucus (None) /hpf 12/20/18 12/20/18 Range/Units 06:20 11:16 WBC (3.8-10.6) k/uL RBC (4.30-5.90) m/uL Hgb (13.0-17.5) gm/dL Hct (39.0-53.0) % RDW (11.5-15.5) % Neutrophils # (1.3-7.7) k/uL Lymphocytes # (1.0-4.8) k/uL APTT (22.0-30.0) sec ABG pH (7.35-7.45) ABG pO2 (83-108) mmHg ABG HCO3 (21-25) mmol/L ABG Total CO2 (19-24) mmol/L ABG O2 Saturation (94-97) % BUN (9-20) mg/dL Creatinine (0.66-1.25) mg/dL Glucose (74-99) mg/dL POC Glucose (mg/dL) 222 H 155 H (75-99) mg/dL Calcium (8.4-10.2) mg/dL Phosphorus (2.5-4.5) mg/dL Ur Specific [place] (1.001-1.035) Urine Protein (Negative) Urine Glucose (UA) (Negative) Urine Ketones (Negative) Urine Blood (Negative) Ur Leukocyte Esterase (Negative) Urine RBC (0-5) /hpf Urine WBC (0-5) /hpf Urine Bacteria (None) /hpf Urine Mucus (None) /hpf Microbiology - Last 24 Hours (Table) 12/19/18 23:04 Anaerobic Culture - Preliminary Penis 12/19/18 23:08 Urine Culture - Preliminary Urine,Voided 12/19/18 23:04 Genital Culture - Preliminary Penis
[2018-12-20 16:02] LABS: Glucose,Whole Blood 143 mg/dL (75-99)
[2018-12-20 17:40] LABS: Glucose,Whole Blood 170 mg/dL (75-99)
[2018-12-20] MEDS: HEPARIN SODIUM,PORCINE 12,500 UNIT in DEXTROSE 5% IN WATER 500 ML IV SCH ×2 (20:37)
[2018-12-20] MEDS: ALPRAZolam 0.25 MG TAB PO SCH (20:51)
[2018-12-20] MEDS: FLUTICASONE 50MCG/SPRAY NASAL 16GM EA NOSTRIL SCH (20:52)
[2018-12-20] MEDS: ESCITALOPRAM 10 MG TAB PO SCH (20:52)
[2018-12-20 20:55] LABS: Glucose,Whole Blood 259 mg/dL (75-99)
--- NOTE | 2018-12-20 23:11 | P.HPIM ---
History of Present Illness H&P Date: 12/20/18 Chief Complaint: Chest pain Patient is a 63-year-old male with a known history of hypertension, diabetes type 2 insulin-dependent, hyperlipidemia, chronic kidney disease stage 4, anxiety/depression initially presented to [facility] with complaints of chest discomfort intermittently along with nausea and vomiting for the past 2 days. Patient was found have acute ST elevation IA with ST elevations in the inferior and lateral leads. Patient was eventually t ransferred to [facility] for immediate cardiac catheterization. Patient had acute cardiogenic shock before cardiac catheterization. Patient was intubated and following that Patient underwent cardiac catheterization which showed total occlusion of the distal circumflex with a dominant circumflex, critical disease involving the proximal LAD and chronic occlusion of the LAD distally and Impala was inserted in the left ventricle with successful stenting of the distal circumflex. Patient is currently extubated. Off pressor support. Currently being monitored in the intensive care unit. Cardiology pulmonary and nephrology is following. WBC 17.9, hemoglobin 11 and creatinine level I.95 Chest x-ray showed there may be a component of volume overload, interstitial edema. Correlate for basilar atelectasis versus edema, pneumonia felt to be less likely. Review of Systems Constitutional: Patient denies any fever or chills . No generalized weakness or weight loss. Abdomen: Patient denied nausea vomiting and diarrhea and abdominal pain. Cardiovascular: Patient denies any chest pain or short of breath no palpitations. Respiratory: patient denied any cough is from production. No shortness of breath Neurologic: Patient denied any numbness or tingling headache. Musculoskeletal: Patient denies any complaints of joint swelling or deformity. Skin: Negative Psychiatric: Negative Endocrine: No heat or cold intolerance. No recent weight gain. Genitourinary: No dysuria or hematuria. All other 14 point ROS negative except the above Past Medical History Past Medical History: Coronary Artery Disease (CAD), Heart Failure, Diabetes Mellitus, GERD/Reflux, Hyperlipidemia, Hypertension, Renal Disease History of Any Multi-Drug Resistant Organisms: None Reported Additional Past Surgical History / Comment(s): surgery on thumb Past Anesthesia/Blood Transfusion Reactions: No Reported Reaction Past Psychological History: Anxiety, Depression Smoking Status: Former smoker Past Alcohol Use History: Occasional Past Drug Use History: None Reported Medications and Allergies Home Medications Medication Instructions Recorded Confirmed Type ALPRAZolam [Xanax] 0.25 mg PO HS 12/19/18 12/19/18 History Aspirin EC [Ecotrin Low Dose] 81 mg PO Q48H 12/19/18 12/19/18 History Escitalopram [Lexapro] 10 mg PO DAILY 12/19/18 12/19/18 History Fluticasone Nasal [place] [Flonase 1 spray EA NOSTRIL DAILY 12/19/18 12/19/18 History Nasal [place]] Furosemide [Lasix] 40 mg PO BID 12/19/18 12/19/18 History Insulin Aspart [NovoLOG Flexpen] 6 units SQ AC-TID 12/19/18 12/19/18 History Insulin Glargine,Hum.rec.anlog 36 unit SQ DAILY 12/19/18 12/19/18 History [Lantus Solostar] Losartan [Cozaar] 50 mg PO DAILY 12/19/18 12/19/18 History Metoprolol Tartrate [Lopressor] 100 mg PO BID 12/19/18 12/19/18 History Omeprazole [PriLOSEC] 20 mg PO DAILY 12/19/18 12/19/18 History Potassium Chloride ER [K-Dur 20] 20 meq PO DAILY 12/19/18 12/19/18 History Rosuvastatin Calcium [Crestor] 5 mg PO HS 12/19/18 12/19/18 History Saxagliptin HCl [Onglyza] 5 mg PO DAILY 12/19/18 12/19/18 History amLODIPine [Norvasc] 10 mg PO DAILY 12/19/18 12/19/18 History Allergies Allergy/AdvReac Type Severity Reaction Status Date / Time No Known Allergies Allergy Unverified 12/19/18 15:37 Physical Exam Vitals: Vital Signs Temp Pulse Resp BP Pulse Ox 12/20/18 11:23 96 12/20/18 11:11 98 12/20/18 11:00 98 17 95 12/20/18 10:00 95 14 94 L 12/20/18 09:00 87 12 96 12/20/18 08:00 99.7 F H 88 25 H 93 L 12/20/18 07:35 88 12/20/18 07:16 88 12/20/18 07:00 77 16 98 12/20/18 06:00 78 16 97 12/20/18 05:00 79 16 96 12/20/18 04:00 98.4 F 78 16 99 12/20/18 03:15 75 12/20/18 03:08 74 12/20/18 03:00 75 16 99 12/20/18 02:00 75 16 98 12/20/18 01:00 78 16 98 12/20/18 00:00 98.5 F 80 16 98 12/19/18 23:14 78 12/19/18 23:07 78 12/19/18 23:00 80 16 99 12/19/18 22:00 77 16 99/75 98 12/19/18 21:00 80 16 106/81 98 12/19/18 20:00 98.2 F 84 16 107/79 99 12/19/18 19:52 83 12/19/18 19:41 84 21 Intake and Output 12/19/18 12/20/18 12/20/18 22:59 06:59 14:59 Intake Total 483 857.714 434.968 Output Total 540 170 Balance 483 317.714 264.968 Intake: IV 483 706 348 Dextrose 5% in Water 1, 220 100 000 ml @ 20 mls/hr IV . Q24H ONE with Heparin Sodium (1,000 Unit/ml) 50 unit Rx#:[id number] Sodium Chloride 0.9% 1, 420 150 000 ml @ 75 mls/hr IV . [id number] [facility] Rx#:[id number] femoral pressure bag 33 83 right wrist a-line bag 33 15 Intake, IV Titration 151.714 86.968 Amount Norepinephrine 4 mg In 15.394 20.065 Sodium Chloride 0.9% 250 ml @ 0.03 MCG/KG/MIN 10. 378 mls/hr IV .Q24H [facility] Rx#:[id number] Propofol 1,000 mg In 136.320 66.903 Empty Bag 1 bag @ Titrate IV .Q0M [facility] Rx#: [id number] Output: Urine 540 170 Other: Voiding Method Indwelling Catheter Indwelling Catheter Weight 90.8 kg 91.9 kg ABP, PAP, CO, CI - Last 8 Hours Arterial Blood Pressure 133/59 Arterial Blood Pressure 138/62 Arterial Blood Pressure 124/65 Arterial Blood Pressure 113/58 Arterial Blood Pressure 107/56 Arterial Blood Pressure 104/59 Arterial Blood Pressure 96/55 Arterial Blood Pressure 102/60 PHYSICAL EXAMINATION: Patient is lying in the bed comfortably, no acute distress, awake alert and oriented.. HEENT: Normocephalic. Neck is supple. Pupils reactive. Nostrils clear. Oral cavity is moist. Ears reveal no drainage. Neck reveals no JVD, carotid bruits, or thyromegaly. CHEST EXAMINATION: Trachea is central. Symmetrical expansion. Lung sahu clear to auscultation and percussion. CARDIAC: Normal S1, S2 with no gallops. No murmurs ABDOMEN: Soft. Bowel sounds normal. No organomegaly. No abdominal bruits. Extremities: reveal no edema. No clubbing or cyanosis Neurologically awake, alert, oriented x3 with well-coordinated movements. No focal deficits noted Skin: No rash or skin lesions. Psychiatric: Coperative. Nonsuicidal Musculoskeletal: No joint swelling or deformity. Normal range of motion. Results CBC & Chem 7: 12/20/18 04:30 12/20/18 04:30 Labs: Abnormal Lab Results - Last 24 Hours (Table) 12/19/18 12/19/18 12/19/18 Range/Units 02:17 16:37 19:08 WBC 17.9 H (3.8-10.6) k/uL RBC 3.80 L (4.30-5.90) m/uL Hgb 11.1 L (13.0-17.5) gm/dL Hct 32.0 L (39.0-53.0) % RDW (11.5-15.5) % Neutrophils # 16.3 H (1.3-7.7) k/uL Lymphocytes # 0.4 L (1.0-4.8) k/uL APTT (22.0-30.0) sec ABG pH 7.16 L* (7.35-7.45) ABG pO2 78 L (83-108) mmHg ABG HCO3 15 L (21-25) mmol/L ABG Total CO2 17 L (19-24) mmol/L ABG O2 Saturation 89.8 L (94-97) % BUN (9-20) mg/dL Creatinine (0.66-1.25) mg/dL Glucose (74-99) mg/dL POC Glucose (mg/dL) 297 H (75-99) mg/dL Calcium (8.4-10.2) mg/dL Phosphorus (2.5-4.5) mg/dL Ur Specific [place] (1.001-1.035) Urine Protein (Negative) Urine Glucose (UA) (Negative) Urine Ketones (Negative) Urine Blood (Negative) Ur Leukocyte Esterase (Negative) Urine RBC (0-5) /hpf Urine WBC (0-5) /hpf Urine Bacteria (None) /hpf Urine Mucus (None) /hpf 12/19/18 12/19/18 12/19/18 Range/Units 19:35 19:52 22:15 WBC 16.3 H (3.8-10.6) k/uL RBC 3.87 L (4.30-5.90) m/uL Hgb 10.6 L (13.0-17.5) gm/dL Hct 31.4 L (39.0-53.0) % RDW 16.0 H (11.5-15.5) % Neutrophils # 14.4 H (1.3-7.7) k/uL Lymphocytes # 0.9 L (1.0-4.8) k/uL APTT (22.0-30.0) sec ABG pH (7.35-7.45) ABG pO2 144 H (83-108) mmHg ABG HCO3 (21-25) mmol/L ABG Total CO2 26 H (19-24) mmol/L ABG O2 Saturation 98.8 H (94-97) % BUN 28 H (9-20) mg/dL Creatinine 1.95 H (0.66-1.25) mg/dL Glucose 287 H (74-99) mg/dL POC Glucose (mg/dL) (75-99) mg/dL Calcium 8.0 L (8.4-10.2) mg/dL Phosphorus (2.5-4.5) mg/dL Ur Specific [place] (1.001-1.035) Urine Protein (Negative) Urine Glucose (UA) (Negative) Urine Ketones (Negative) Urine Blood (Negative) Ur Leukocyte Esterase (Negative) Urine RBC (0-5) /hpf Urine WBC (0-5) /hpf Urine Bacteria (None) /hpf Urine Mucus (None) /hpf 12/19/18 12/19/18 12/20/18 Range/Units 22:15 23:08 00:39 WBC (3.8-10.6) k/uL RBC (4.30-5.90) m/uL Hgb (13.0-17.5) gm/dL Hct (39.0-53.0) % RDW (11.5-15.5) % Neutrophils # (1.3-7.7) k/uL Lymphocytes # (1.0-4.8) k/uL APTT 72.1 H (22.0-30.0) sec ABG pH (7.35-7.45) ABG pO2 (83-108) mmHg ABG HCO3 (21-25) mmol/L ABG Total CO2 (19-24) mmol/L ABG O2 Saturation (94-97) % BUN (9-20) mg/dL Creatinine (0.66-1.25) mg/dL Glucose (74-99) mg/dL POC Glucose (mg/dL) 289 H (75-99) mg/dL Calcium (8.4-10.2) mg/dL Phosphorus (2.5-4.5) mg/dL Ur Specific [place] >1.050 H (1.001-1.035) Urine Protein Trace H (Negative) Urine Glucose (UA) 3+ H (Negative) Urine Ketones 1+ H (Negative) Urine Blood Large H (Negative) Ur Leukocyte Esterase Large H (Negative) Urine RBC >182 H (0-5) /hpf Urine WBC 45 H (0-5) /hpf Urine Bacteria Rare H (None) /hpf Urine Mucus Rare H (None) /hpf 12/20/18 12/20/18 12/20/18 Range/Units 04:30 04:30 04:30 WBC 11.9 H (3.8-10.6) k/uL RBC 3.61 L (4.30-5.90) m/uL Hgb 10.2 L (13.0-17.5) gm/dL Hct 29.7 L (39.0-53.0) % RDW (11.5-15.5) % Neutrophils # 9.9 H (1.3-7.7) k/uL Lymphocytes # (1.0-4.8) k/uL APTT (22.0-30.0) sec ABG pH (7.35-7.45) ABG pO2 209 H (83-108) mmHg ABG HCO3 27 H (21-25) mmol/L ABG Total CO2 28 H (19-24) mmol/L ABG O2 Saturation 99.8 H (94-97) % BUN 28 H (9-20) mg/dL Creatinine 1.99 H (0.66-1.25) mg/dL Glucose 206 H (74-99) mg/dL POC Glucose (mg/dL) (75-99) mg/dL Calcium 7.8 L (8.4-10.2) mg/dL Phosphorus 2.4 L (2.5-4.5) mg/dL Ur Specific [place] (1.001-1.035) Urine Protein (Negative) Urine Glucose (UA) (Negative) Urine Ketones (Negative) Urine Blood (Negative) Ur Leukocyte Esterase (Negative) Urine RBC (0-5) /hpf Urine WBC (0-5) /hpf Urine Bacteria (None) /hpf Urine Mucus (None) /hpf 12/20/18 Range/Units 06:20 WBC (3.8-10.6) k/uL RBC (4.30-5.90) m/uL Hgb (13.0-17.5) gm/dL Hct (39.0-53.0) % RDW (11.5-15.5) % Neutrophils # (1.3-7.7) k/uL Lymphocytes # (1.0-4.8) k/uL APTT (22.0-30.0) sec ABG pH (7.35-7.45) ABG pO2 (83-108) mmHg ABG HCO3 (21-25) mmol/L ABG Total CO2 (19-24) mmol/L ABG O2 Saturation (94-97) % BUN (9-20) mg/dL Creatinine (0.66-1.25) mg/dL Glucose (74-99) mg/dL POC Glucose (mg/dL) 222 H (75-99) mg/dL Calcium (8.4-10.2) mg/dL Phosphorus (2.5-4.5) mg/dL Ur Specific [place] (1.001-1.035) Urine Protein (Negative) Urine Glucose (UA) (Negative) Urine Ketones (Negative) Urine Blood (Negative) Ur Leukocyte Esterase (Negative) Urine RBC (0-5) /hpf Urine WBC (0-5) /hpf Urine Bacteria (None) /hpf Urine Mucus (None) /hpf Microbiology - Last 24 Hours (Table) 12/19/18 23:04 Anaerobic Culture - Preliminary Penis 12/19/18 23:04 Genital Culture - Preliminary Penis Thrombosis Risk Factor Assmnt - DVT/VTE Prophylaxis DVT/VTE Prophylaxis: Pharmacologic Prophylaxis ordered - Choose All That Apply Any of the Below Risk Factors Present?: Yes Each Factor Represents 1 point: Acute IA, Medical pt on bed rest, Obesity (BMI >25) Each Risk Factor Represents 2 Points: Age 61-74 years Other congenital or acquired thrombophilia - If yes, enter type in comment: No Thrombosis Risk Factor Assessment Total Risk Factor Score: 5 Thrombosis Risk Factor Assessment Level: High Risk Assessment and Plan Assessment: Acute ST elevated IA status post cardiac cath additional stenting of distal circumflex and LAD Cardiogenic shock status post Impala insertion and pressor support. Diabetes type 2 insulin-dependent. A1c 7.0 Hypertension Hyperlipidemia Acute on Chronic kidney disease stage IV. Creatinine level I.95. Baseline creatinine not known. Obesity with a BMI 30.8 Leukocytosis. Likely reactive. Rule out infection DVT prophylaxis with heparin subcu Plan: Patient will be continued on aspirin statins and Lasix and Coreg. Avoid hypotension due to chronic kidney disease with possible acute component. Cont inue with insulin dosing with Levemir 36 units daily along with 6 units of NovoLog 3 times a day before meals along with sliding scale. Currently patient is off pressor support. Blood pressure is maintained. We will follow up CBC. Other recommendations based on the clinical course. Pulmonary cardiology and nephrology is on board. Prognosis is guarded. Time with Patient: Greater than 30
[2018-12-20] MEDS: HEPARIN SODIUM,PORCINE 5,000 UNIT/ML 1 ML VIAL SQ SCH (23:49)
[2018-12-20] MEDS: ZOLPIDEM 5 MG TAB PO PRN (23:49)
[2018-12-21] MEDS: NOREPINEPHRINE 4 MG in SODIUM CHLORIDE 0.9% 250 ML IV SCH (02:18)
[2018-12-21 02:46] LABS: Glucose,Whole Blood 142 mg/dL (75-99)
[2018-12-21] MEDS: INSULIN ASPART (NovoLOG) 100 UNIT/ML VIAL SQ SCH ×8 (02:53→21:24)
[2018-12-21 05:36] LABS: Basophils % (A) 0 %; Eosinophils # (A) 0.1 k/uL (0-0.7); Eosinophils % (A) 1 %; HCT 25.1 % (39.0-53.0); Lymphocytes # (A) 0.9 k/uL (1.0-4.8); Lymphocytes % (A) 10 %; MCH 26.9 pg (25.0-35.0); MCHC 32.9 g/dL (31.0-37.0); MCV 81.7 fL (80.0-100.0); Mean Platelet Volume 8.2; Monocytes # (A) 0.4 k/uL (0-1.0); Monocytes % (A) 5 %; Neutrophils # (A) 6.8 k/uL (1.3-7.7); Neutrophils % (A) 83 %; Platelet Count 124 k/uL (150-450); RBC 3.07 m/uL (4.30-5.90); RDW 13.8 % (11.5-15.5); WBC 8.3 k/uL (3.8-10.6)
[2018-12-21 05:43] LABS: Calcium 7.6 mg/dL (8.4-10.2); Magnesium 1.8 mg/dL (1.6-2.3); Potassium 3.6 mmol/L (3.5-5.1)
[2018-12-21 05:46] LABS: INR 0.9 (<1.2); Partial Thromboplastin Time 26.1 sec (22.0-30.0); Prothrombin Time 10.1 sec (9.0-12.0)
[2018-12-21 05:58] LABS: HGB 8.3 gm/dL (13.0-17.5)
[2018-12-21 07:08] LABS: Glucose,Whole Blood 170 mg/dL (75-99)
[2018-12-21] MEDS: CARVEDILOL 1.563 MG TAB PO SCH (07:08)
[2018-12-21] MEDS: IPRATROPIUM-ALBUTEROL 3 ML NEB INHALATION SCH ×4 (07:15→19:53)
[2018-12-21] MEDS: BUDESONIDE 0.5 MG/2 ML NEBU INHALATION SCH ×2 (07:15→19:53)
--- NOTE | 2018-12-21 07:29 | XR ---
EXAMINATION TYPE: XR chest 1V portable DATE OF EXAM: 12/21/2018 HISTORY: Shortness of breath. COMPARISON: 12/20/2018 TECHNIQUE: Single view of the chest is submitted. FINDINGS: Demonstrated are scattered senescent parenchymal change. Endotracheal and NG tubes have been removed . Scattered linear infiltrates persist. Improved aeration noted bilaterally. Mild pulmonary venous marnie estion is noted to persist. The heart is stable. Hilar and mediastinal structures are within normal limits. Degenerative changes are seen of the dorsal spine. IMPRESSION: 1. Scattered linear infiltrates persist. Improved aeration noted bilaterally. Mild pulmonary venous congestion is noted to persist.
[2018-12-21] MEDS: INSULIN DETEMIR (LEVEMIR) 100 UNIT/ML SYR SQ SCH (08:18)
[2018-12-21] MEDS: FLUTICASONE 50MCG/SPRAY NASAL 16GM EA NOSTRIL SCH (08:19)
[2018-12-21] MEDS: PANTOPRAZOLE 40 MG/10 ML VIAL IV SCH (08:19)
[2018-12-21] MEDS: ASPIRIN 325 MG TAB PO SCH (08:19)
[2018-12-21] MEDS: CLOPIDOGREL 75 MG TAB PO SCH (08:19)
[2018-12-21] MEDS: ESCITALOPRAM 10 MG TAB PO SCH (08:20)
[2018-12-21] MEDS: HEPARIN SODIUM,PORCINE 5,000 UNIT/ML 1 ML VIAL SQ SCH ×2 (08:20→16:43)
[2018-12-21] MEDS ORDERED: POTASSIUM CHLORIDE ER 20 MEQ TAB.ER PO SCH (09:00)
[2018-12-21] MEDS ORDERED: FUROSEMIDE 10 MG/ML 4 ML VIAL IV STA (09:01)
[2018-12-21 11:59] LABS: Glucose,Whole Blood 226 mg/dL (75-99)
--- NOTE | 2018-12-21 12:24 | P.PN ---
Subjective Progress Note Date: 12/21/18 A pleasant 63-year-old male patient who was visiting from [place] and he developed chest pain and initially went to [facility] where he was diagnosed having a subacute ST elevation inferior wall myocardial infarction with lateral and posterior extension. The patient got transferred to our hospital for further evaluation and management. The patient is known to have diabetes, hypertension and chronic renal failure and the patient has chronic stage 4 kidney disease. Was immediately taken to the [facility]. The patient was an acute cardiogenic shock. Left ventricular end-diastolic pressure was measured to be at 44 mmHg. He was intubated electively. Following that a cardiac catheterization was done and the patient was found to have total occlusion of the distal circumflex with a dominant circumflex, critical disease involving the proximal LAD and chronic occlusion of the LAD distally, and Liya was inserted in the left ventricle, successful stenting of the distal circumflex was done with drug-eluting stent. Successful stenting of the LAD was also done with drug-eluting stent. The patient was started on dual antiplatelet agent. The patient was placed on low-dose pressors and currently the patient is on levo fed chronic at 0.01 mg per KG per minute. The patient got transferred to the intensive care unit and the patient was quite sedated on Diprivan This morning, the patient is arousable. The patient on an assist-control mode of ventilation. PEEP is at 10 with an FiO2 of 40% tidal volume of 500. The blood gases showed a pH of 7.4-5 with a pCO2 of 38 and pO2 of 219 and this was on FiO2 of 80% pH chest x-ray showing a mild component of pulmonary edema. ET tube is in a good location. In paralyzed in good location. Patient is producing adequate amount of urine output. The patient is warm and has equal and symmetrical pulses in all 4 extremities. His arousable. Follows commands and answering questions appropriately as the Diprivan is being weaned off. The patient has a Impala catheter in his left femoral artery. Creatinine is at 1.9 and stable for now. On 12/21/2018 I'm seeing this patient for a follow-up in the patient will be extubated. The Impala has already been taken out. The patient is able to sit up on a chair. He is currently on 5 L of oxygen by nasal cannula. No chest pain. No cough or sputum production. No chest tightness or wheezing. No fever or chills. He has adequate pulses in all 4 extremities bilaterally. His coagulation profile is within normal. Renal function is also normal with a creatinine of 2.2. Hemoglobin stable at 8.3. T the chest x-ray showed scattered linear infiltrates bilaterally with improved aeration and mild pulmonary vascular congestion. The patient is tolerating his diet. No other significant events over the past 24 hours. No cardiac arrhythmias. Echo was noted. Juan Luis infections 40-45% and the patient has some segmental wall motion abnormalities. Objective - Vital Signs Vital signs: Vital Signs Temp 98.8 F 12/21/18 08:00 Pulse 92 12/21/18 11:41 Resp 24 12/21/18 11:00 BP 130/64 12/21/18 11:00 Pulse Ox 94 L 12/21/18 11:00 Intake & Output 12/20/18 12/21/18 12/21/18 18:59 06:59 18:59 Intake Total 682.968 116 272 Output Total 440 455 140 Balance 242.968 -339 132 Weight 91.9 kg 95 kg Intake: IV 596 116 12 Dextrose 5% in Water 1, 120 000 ml @ 20 mls/hr IV . Q24H ONE with Heparin Sodium (1,000 Unit/ml) 50 unit Rx#:[id number] Sodium Chloride 0.9% 1, 405 80 000 ml @ 75 mls/hr IV . [id number] [facility] Rx#:[id number] femoral pressure bag 35 right wrist a-line bag 36 36 12 Intake, IV Titration 86.968 Amount Norepinephrine 4 mg In 20.065 Sodium Chloride 0.9% 250 ml @ 0.03 MCG/KG/MIN 10. 378 mls/hr IV .Q24H [facility] Rx#:[id number] Propofol 1,000 mg In 66.903 Empty Bag 1 bag @ Titrate IV .Q0M [facility] Rx#: [id number] Oral 260 Output: Urine 440 455 140 Other: Voiding Method Indwelling Catheter Indwelling Catheter Indwelling Catheter ABP, PAP, CO, CI - Last Documented Arterial Blood Pressure 132/49 - Exam The patient appeared well nourished and normally developed. Vital signs as d ocumented. Head exam is unremarkable. No scleral icterus or corneal arcus noted. Neck is without jugular venous distension, thyromegaly, or carotid bruits. Carotid upstrokes are brisk bilaterally. Lungs are clear to auscultation and percussion, and the patient has some limited bibasilar crackles consistent with some pulmonary vascular congestion.. Cardiac exam reveals the PMI to be normally sized and situated. Rhythm is regular. First and second heart sounds normal. No murmurs, rubs or gallops. Abdominal exam reveals normal bowel sounds, no masses, no organomegaly and no aortic enlargement. Extremities are nonedematous and both femoral and pedal pulses are normal.Examination of the skin revealed no evidence of significant rashes, suspicious appearing nevi or other concerning lesions. Neurologically awake and alert and is no focal neurological deficits. - Labs CBC & Chem 7: 12/21/18 04:42 12/21/18 04:42 Labs: Abnormal Lab Results - Last 24 Hours (Table) 12/20/18 12/20/18 12/20/18 Range/Units 04:30 15:50 17:28 RBC (4.30-5.90) m/uL Hgb (13.0-17.5) gm/dL Hct (39.0-53.0) % Plt Count (150-450) k/uL Lymphocytes # (1.0-4.8) k/uL Sodium (137-145) mmol/L BUN (9-20) mg/dL Creatinine (0.66-1.25) mg/dL Glucose (74-99) mg/dL POC Glucose (mg/dL) 143 H 170 H (75-99) mg/dL Hemoglobin A1c 7.0 H (4.0-6.0) % Calcium (8.4-10.2) mg/dL 12/20/18 12/21/18 12/21/18 Range/Units 20:43 02:35 04:42 RBC 3.07 L (4.30-5.90) m/uL Hgb 8.3 L D (13.0-17.5) gm/dL Hct 25.1 L (39.0-53.0) % Plt Count 124 L (150-450) k/uL Lymphocytes # 0.9 L (1.0-4.8) k/uL Sodium (137-145) mmol/L BUN (9-20) mg/dL Creatinine (0.66-1.25) mg/dL Glucose (74-99) mg/dL POC Glucose (mg/dL) 259 H 142 H (75-99) mg/dL Hemoglobin A1c (4.0-6.0) % Calcium (8.4-10.2) mg/dL 12/21/18 12/21/18 12/21/18 Range/Units 04:42 06:57 11:47 RBC (4.30-5.90) m/uL Hgb (13.0-17.5) gm/dL Hct (39.0-53.0) % Plt Count (150-450) k/uL Lymphocytes # (1.0-4.8) k/uL Sodium 136 L (137-145) mmol/L BUN 29 H (9-20) mg/dL Creatinine 2.27 H (0.66-1.25) mg/dL Glucose 124 H (74-99) mg/dL POC Glucose (mg/dL) 170 H 226 H (75-99) mg/dL Hemoglobin A1c (4.0-6.0) % Calcium 7.6 L (8.4-10.2) mg/dL Microbiology - Last 24 Hours (Table) 12/19/18 23:08 Urine Culture - Final Urine,Voided 12/19/18 23:04 Anaerobic Culture - Preliminary Penis 12/19/18 23:04 Genital Culture - Preliminary Penis Assessment and Plan Plan: Assessment [address] segment elevation inferior myocardial wall infarction with lateral and posterior extension, status post cardiac catheterization and stenting of the circumflex and LAD, and the circumflex was a dominant vessel 2 cardiogenic shock secondary to above, status post Impala catheter insertion for hemodynamic support, currently on low dose of norepinephrine infusion for blood pressure control. On 12/21/2018 the Impala has been removed and the patient is hemodynamically stable on metoprolol and the patient is on 5 L of oxygen by nasal cannula and the patient has a limited pulmonary vessel congestion and he would benefit from Lasix. 3 coronary artery disease 4 diabetes mellitus type 2 maintained on insulin outpatient basis 5 chronic stage IV kidney disease, stable creatinine 6 hypertension 7 hyperlipidemia 8 acute hypoxic respiratory failure requiring intubation mechanical ventilation, recovered and the patient has been extubated without any major difficulties currently on 5 L of oxygen by nasal cannula. Plan Give the patient 40 mg of IV Lasix. Continue metoprolol. Continue aspirin. Continue Plavix. Echocardiogram was noted. No pressors for now. Ambulate in the hallway. Sit up on a chair. Advance diet. We'll continue to follow.
--- NOTE | 2018-12-21 13:35 | P.PN ---
<PatitoAnton - Last Filed: 12/21/18 13:35> Objective - Vital Signs Vital signs: Vital Signs Temp 98.2 F 12/21/18 12:00 Pulse 93 12/21/18 12:00 Resp 34 H 12/21/18 12:00 BP 130/64 12/21/18 12:00 Pulse Ox 95 12/21/18 12:00 Intake & Output 12/20/18 12/21/18 12/21/18 18:59 06:59 18:59 Intake Total 682.968 116 758 Output Total 440 455 300 Balance 242.968 -339 458 Weight 91.9 kg 95 kg Intake: IV 596 116 18 Dextrose 5% in Water 1, 120 000 ml @ 20 mls/hr IV . Q24H ONE with Heparin Sodium (1,000 Unit/ml) 50 unit Rx#:[id number] Sodium Chloride 0.9% 1, 405 80 000 ml @ 75 mls/hr IV . [id number] [facility] Rx#:[id number] femoral pressure bag 35 right wrist a-line bag 36 36 18 Intake, IV Titration 86.968 Amount Norepinephrine 4 mg In 20.065 Sodium Chloride 0.9% 250 ml @ 0.03 MCG/KG/MIN 10. 378 mls/hr IV .Q24H [facility] Rx#:[id number] Propofol 1,000 mg In 66.903 Empty Bag 1 bag @ Titrate IV .Q0M [facility] Rx#: [id number] Oral 740 Output: Urine 440 455 300 Other: Voiding Method Indwelling Catheter Indwelling Catheter Indwelling Catheter ABP, PAP, CO, CI - Last Documented Arterial Blood Pressure 127/52 - Labs CBC & Chem 7: 12/21/18 04:42 12/21/18 04:42 Labs: Abnormal Lab Results - Last 24 Hours (Table) 12/20/18 12/20/18 12/20/18 Range/Units 04:30 15:50 17:28 RBC (4.30-5.90) m/uL Hgb (13.0-17.5) gm/dL Hct (39.0-53.0) % Plt Count (150-450) k/uL Lymphocytes # (1.0-4.8) k/uL Sodium (137-145) mmol/L BUN (9-20) mg/dL Creatinine (0.66-1.25) mg/dL Glucose (74-99) mg/dL POC Glucose (mg/dL) 143 H 170 H (75-99) mg/dL Hemoglobin A1c 7.0 H (4.0-6.0) % Calcium (8.4-10.2) mg/dL 12/20/18 12/21/18 12/21/18 Range/Units 20:43 02:35 04:42 RBC 3.07 L (4.30-5.90) m/uL Hgb 8.3 L D (13.0-17.5) gm/dL Hct 25.1 L (39.0-53.0) % Plt Count 124 L (150-450) k/uL Lymphocytes # 0.9 L (1.0-4.8) k/uL Sodium (137-145) mmol/L BUN (9-20) mg/dL Creatinine (0.66-1.25) mg/dL Glucose (74-99) mg/dL POC Glucose (mg/dL) 259 H 142 H (75-99) mg/dL Hemoglobin A1c (4.0-6.0) % Calcium (8.4-10.2) mg/dL 12/21/18 12/21/18 12/21/18 Range/Units 04:42 06:57 11:47 RBC (4.30-5.90) m/uL Hgb (13.0-17.5) gm/dL Hct (39.0-53.0) % Plt Count (150-450) k/uL Lymphocytes # (1.0-4.8) k/uL Sodium 136 L (137-145) mmol/L BUN 29 H (9-20) mg/dL Creatinine 2.27 H (0.66-1.25) mg/dL Glucose 124 H (74-99) mg/dL POC Glucose (mg/dL) 170 H 226 H (75-99) mg/dL Hemoglobin A1c (4.0-6.0) % Calcium 7.6 L (8.4-10.2) mg/dL Microbiology - Last 24 Hours (Table) 12/19/18 23:08 Urine Culture - Final Urine,Voided 12/19/18 23:04 Anaerobic Culture - Preliminary Penis 12/19/18 23:04 Genital Culture - Preliminary Penis <Debra Ramos - Last Filed: 12/21/18 15:17> Subjective Mr. Lowe seen and examined resting comfortably in bed in no acute distress. He is currently extubated and breathing on his own with a nasal cannula maintaining his oxygen saturation. Impella was removed yesterday per Dr. Mendez. Right groin is soft, mildly tender on palpitation with no evidence of hematoma, swelling, bleeding with very mild ecchymosis about the size of a quarter around the puncture site. Blood pressure 130/64 heart rate 93 afebrile maintaining oxygen saturation on room air. Laboratory data reviewed, WBC 8.3, hemoglobin 8.3, platelets 124, sodium 136, potassium 3.6, creatinine 2.27 and magnesium 1.8. Currently maintained on aspirin 325 mg daily, atorvastatin 80 mg daily, carvedilol 1.563 mg by mouth twice a day, Plavix 75 mg daily. Chest x-ray obtained this morning reveal scattered lineal infiltrates persistent with improved aeration bilaterally and mild pulmonary venous congestion. GENERAL: Well-appearing, well-nourished and in no acute distress. NECK: Supple without JVD or thyromegaly. LUNGS: Breath sounds clear to auscultation bilaterally. Respiration equal and unlabored. No wheezes, rales or rhonchi. Diminished bilaterally. HEART: Regular rate and rhythm without murmurs, rubs or gallops. S1 and S2 heard. EXTREMITIES: Normal range of motion, no edema. No clubbing or cyanosis. Per ipheral pulses intact. Right puncture site clean, dry and intact with no evidence of bleeding, hematoma or swelling. Distal pulses strong and intact. ASSESSMENT Acute myocardial infarction Severe heart failure with elevated LVEDP with sinus tachycardia and pending cardiac shock Multivessel coronary artery disease status post and polyp placement and stenting Chronic kidney disease reduce LV systolic function with ejection fraction 40-45% with inferior wall motion abnormalities Hypertension Dyslipidemia Diabetes mellitus PLAN Increase carvedilol to 3.25 mg twice a day. Discontinue potassium supplementation and initiate on Aldactone 12.5 mg daily and Lasix 40 mg daily. Further recommendations to follow based on clinical course. Nurse Practitioner note has been reviewed, I agree with a documented findings and plan of care. Patient was seen and examined. Objective - Vital Signs Vital signs: Vital Signs Temp 98.2 F 12/21/18 12:00 Pulse 93 12/21/18 12:00 Resp 34 H 12/21/18 12:00 BP 130/64 12/21/18 12:00 Pulse Ox 95 12/21/18 12:00 Intake & Output 12/20/18 12/21/18 12/21/18 18:59 06:59 18:59 Intake Total 682.968 116 758 Output Total 440 455 300 Balance 242.968 -339 458 Weight 91.9 kg 95 kg Intake: IV 596 116 18 Dextrose 5% in Water 1, 120 000 ml @ 20 mls/hr IV . Q24H ONE with Heparin Sodium (1,000 Unit/ml) 50 unit Rx#:[id number] Sodium Chloride 0.9% 1, 405 80 000 ml @ 75 mls/hr IV . [id number] [facility] Rx#:[id number] femoral pressure bag 35 right wrist a-line bag 36 36 18 Intake, IV Titration 86.968 Amount Norepinephrine 4 mg In 20.065 Sodium Chloride 0.9% 250 ml @ 0.03 MCG/KG/MIN 10. 378 mls/hr IV .Q24H [facility] Rx#:[id number] Propofol 1,000 mg In 66.903 Empty Bag 1 bag @ Titrate IV .Q0M [facility] Rx#: [id number] Oral 740 Output: Urine 440 455 300 Other: Voiding Method Indwelling Catheter Indwelling Catheter Indwelling Catheter ABP, PAP, CO, CI - Last Documented Arterial Blood Pressure 127/52 - Labs CBC & Chem 7: 12/21/18 04:42 12/21/18 04:42 Labs: Abnormal Lab Results - Last 24 Hours (Table) 12/20/18 12/20/18 12/20/18 Range/Units 04:30 15:50 17:28 RBC (4.30-5.90) m/uL Hgb (13.0-17.5) gm/dL Hct (39.0-53.0) % Plt Count (150-450) k/uL Lymphocytes # (1.0-4.8) k/uL Sodium (137-145) mmol/L BUN (9-20) mg/dL Creatinine (0.66-1.25) mg/dL Glucose (74-99) mg/dL POC Glucose (mg/dL) 143 H 170 H (75-99) mg/dL Hemoglobin A1c 7.0 H (4.0-6.0) % Calcium (8.4-10.2) mg/dL 12/20/18 12/21/18 12/21/18 Range/Units 20:43 02:35 04:42 RBC 3.07 L (4.30-5.90) m/uL Hgb 8.3 L D (13.0-17.5) gm/dL Hct 25.1 L (39.0-53.0) % Plt Count 124 L (150-450) k/uL Lymphocytes # 0.9 L (1.0-4.8) k/uL Sodium (137-145) mmol/L BUN (9-20) mg/dL Creatinine (0.66-1.25) mg/dL Glucose (74-99) mg/dL POC Glucose (mg/dL) 259 H 142 H (75-99) mg/dL Hemoglobin A1c (4.0-6.0) % Calcium (8.4-10.2) mg/dL 12/21/18 12/21/18 12/21/18 Range/Units 04:42 06:57 11:47 RBC (4.30-5.90) m/uL Hgb (13.0-17.5) gm/dL Hct (39.0-53.0) % Plt Count (150-450) k/uL Lymphocytes # (1.0-4.8) k/uL Sodium 136 L (137-145) mmol/L BUN 29 H (9-20) mg/dL Creatinine 2.27 H (0.66-1.25) mg/dL Glucose 124 H (74-99) mg/dL POC Glucose (mg/dL) 170 H 226 H (75-99) mg/dL Hemoglobin A1c (4.0-6.0) % Calcium 7.6 L (8.4-10.2) mg/dL Microbiology - Last 24 Hours (Table) 12/19/18 23:08 Urine Culture - Final Urine,Voided 12/19/18 23:04 Anaerobic Culture - Preliminary Penis
[2018-12-21] MEDS: CARVEDILOL 3.125 MG TAB PO SCH (16:43)
[2018-12-21] MEDS: SPIRONOLACTONE 25 MG TAB PO SCH (16:43)
[2018-12-21 17:22] LABS: Glucose,Whole Blood 210 mg/dL (75-99)
--- NOTE | 2018-12-21 18:52 | PN ---
PROGRESS NOTE Patient is seen for followup for acute kidney injury. He was admitted with an acute [place] and is status post cardiac catheterization. The patient was maintained on IV fluids, which were discontinued yesterday. His serum creatinine has been staying at about 2.2 to 1.9. I did review his previous labs, and his creatinine was about 2.3 in September of 2018. The patient is awake. He denies any complaints at this time. On examination this morning, blood pressure was 130/64, heart rate of 93 per minute. Patient is afebrile. EXAMINATION OF THE HEART: S1 and S2. EXAMINATION OF LUNGS: Bilateral breath sounds are heard. ABDOMEN: Soft, non-tender. Examination of lower extremities shows no significant edema. Labs show sodium 136, potassium 3.6, BUN 29, serum creatinine 2.27, hemoglobin 8.3. ASSESSMENT: 1. Chronic kidney disease, NKF stage IIIB to IV, secondary to nephrosclerosis and diabetic nephropathy. Renal function close to baseline. Continue off of IV fluids. 2. Pyuria with urine culture showing no growth. His UA will be reordered over the next couple of days. Patient has an indwelling Ariza catheter currently. 3. Status post acute myocardial infarction, status post coronary stent placement. 4. Volume overload, currently improved. Patient received a dose of Lasix yesterday. 5. Cardiogenic shock, status post Impella catheter insertion during catheterization which has now been removed. 6. Cardiomyopathy, ejection fraction about 40% to 45%. PLAN: Continue off of IV fluids. Repeat labs in a.m. Avoid any other nephrotoxic agents. May continue with the current dose of Lasix. MMODL / IJN: [id number] /
[2018-12-21 20:41] LABS: Glucose,Whole Blood 224 mg/dL (75-99)
[2018-12-21] MEDS: ATORVASTATIN 80 MG TAB PO SCH (21:25)
[2018-12-21] MEDS: ALPRAZolam 0.25 MG TAB PO SCH (21:25)
[2018-12-21] MEDS: ZOLPIDEM 5 MG TAB PO PRN (22:27)
--- NOTE | 2018-12-22 00:01 | P.PN ---
Subjective Progress Note Date: 12/21/18 Principal diagnosis: Acute ST elevated [place] Cardiac arrest Patient is a 63-year-old male with a known history of hypertension, diabetes type 2 insulin-dependent, hyperlipidemia, chronic kidney disease stage 4, anxiety/depression initially presented to [facility] with complaints of chest discomfort intermittently along with nausea and vomiting for the past 2 days. Patient was found have acute ST elevation KS with ST elevations in the inferior and lateral leads. Patient was eventually transferred to [facility] for immediate cardiac catheteriza tion. Patient had acute cardiogenic shock before cardiac catheterization. Patient was intubated and following that Patient underwent cardiac catheterization which showed total occlusion of the distal circumflex with a dominant circumflex, critical disease involving the proximal LAD and chronic occ lusion of the LAD distally and Impala was inserted in the left ventricle with successful stenting of the distal circumflex. Patient is currently extubated. Off pressor support. Currently being monitored in the intensive care unit. Cardiology pulmonary and nephrology is following. WBC 17.9, hemoglobin 11 and creatinine level I.95 Chest x-ray showed there may be a component of volume overload, interstitial edema. Correlate for basilar atelectasis versus edema, pneumonia felt to be less likely. 12/21/2018 Patient is currently lying in the bed comfortably. No complains of chest pain or worsening shortness of breath. No fever no chills. No headache or dizziness or lightheadedness. Chest x-ray showed scattered linear infiltrates bilaterally with improved aeration and mild pulmonary vascular congestion. Patient is tolerating oral diet. 2-D echocardiogram showed ejection fraction 40-45%. Patient is being continued on Aldactone 12.5 mg daily and Lasix 40 mg daily. Cardiology and pulmonary is following. current medications reviewed. Objective - Vital Signs Vital signs: Vital Signs Temp 99.6 F 12/21/18 20:00 Pulse 95 12/21/18 21:00 Resp 15 12/21/18 21:00 BP 130/64 12/21/18 21:00 Pulse Ox 94 L 12/21/18 21:00 Intake & Output 12/21/18 12/21/18 12/22/18 06:59 18:59 06:59 Intake Total 116 1639 106 Output Total 455 655 90 Balance -339 984 16 Weight 95 kg Intake: IV 116 39 6 Sodium Chloride 0.9% 1, 80 000 ml @ 75 mls/hr IV . [id number] [facility] Rx#:[id number] right wrist a-line bag 36 39 6 Oral 1600 100 Output: Urine 455 655 90 Other: Voiding Method Indwelling Catheter Indwelling Catheter Indwelling Catheter ABP, PAP, CO, CI - Last Documented Arterial Blood Pressure 132/54 - Exam PHYSICAL EXAMINATION: Patient is lying in the bed comfortably, no acute distress, awake alert and oriented.. HEENT: Normocephalic. Neck is supple. Pupils reactive. Nostrils clear. Oral cavity is moist. Ears reveal no drainage. Neck reveals no JVD, carotid bruits, or thyromegaly. CHEST EXAMINATION: Trachea is central. Symmetrical expansion. Scattered rhonchi. Nonlabored breathing.. CARDIAC: Normal S1, S2 with no gallops. No murmurs ABDOMEN: Soft. Bowel sounds normal. No organomegaly. No abdominal bruits. Extremities: Trace edema. No clubbing or cyanosis Neurologically awake, alert, oriented x3 with well-coordinated movements. No focal deficits noted Skin: No rash or skin lesions. Psychiatric: Coperative. Nonsuicidal Musculoskeletal: No joint swelling or deformity. Normal range of motion. - Labs CBC & Chem 7: 12/21/18 04:42 12/21/18 04:42 Labs: Abnormal Lab Results - Last 24 Hours (Table) 12/21/18 12/21/18 12/21/18 Range/Units 02:35 04:42 04:42 RBC 3.07 L (4.30-5.90) m/uL Hgb 8.3 L D (13.0-17.5) gm/dL Hct 25.1 L (39.0-53.0) % Plt Count 124 L (150-450) k/uL Lymphocytes # 0.9 L (1.0-4.8) k/uL Sodium 136 L (137-145) mmol/L BUN 29 H (9-20) mg/dL Creatinine 2.27 H (0.66-1.25) mg/dL Glucose 124 H (74-99) mg/dL POC Glucose (mg/dL) 142 H (75-99) mg/dL Calcium 7.6 L (8.4-10.2) mg/dL 12/21/18 12/21/18 12/21/18 Range/Units 06:57 11:47 17:11 RBC (4.30-5.90) m/uL Hgb (13.0-17.5) gm/dL Hct (39.0-53.0) % Plt Count (150-450) k/uL Lymphocytes # (1.0-4.8) k/uL Sodium (137-145) mmol/L BUN (9-20) mg/dL Creatinine (0.66-1.25) mg/dL Glucose (74-99) mg/dL POC Glucose (mg/dL) 170 H 226 H 210 H (75-99) mg/dL Calcium (8.4-10.2) mg/dL 12/21/18 Range/Units 20:29 RBC (4.30-5.90) m/uL Hgb (13.0-17.5) gm/dL Hct (39.0-53.0) % Plt Count (150-450) k/uL Lymphocytes # (1.0-4.8) k/uL Sodium (137-145) mmol/L BUN (9-20) mg/dL Creatinine (0.66-1.25) mg/dL Glucose (74-99) mg/dL POC Glucose (mg/dL) 224 H (75-99) mg/dL Calcium (8.4-10.2) mg/dL Microbiology - Last 24 Hours (Table) 12/19/18 23:08 Urine Culture - Final Urine,Voided Assessment and Plan Assessment: Acute ST elevated [place] status post cardiac cath additional stenting of distal circumflex and LAD Multivessel coronary artery disease. Cardiogenic shock. status post Impala insertion and pressor support. Diabetes type 2 insulin-dependent. A1c 7.0 Hypertension Hyperlipidemia Acute on Chronic kidney disease stage IV. Creatinine level I.95. Baseline creatinine not known. Obesity with a BMI 30.8 Leukocytosis. Likely reactive. Rule out infection DVT prophylaxis with heparin subcu Plan: Patient will be continued on aspirin statins and Lasix and Coreg. Avoid h ypotension due to chronic kidney disease with possible acute component. Continue with insulin dosing with Levemir 36 units daily along with 6 units of NovoLog 3 times a day before meals along with sliding scale. Currently patient is off pressor support. Blood pressure is maintained. We will follow up CBC. Other recommendations based on the clinical course. Pulmonary cardiology and nephrology is on board. Prognosis is guarded. Time with Patient: Greater than 30
[2018-12-22] MEDS: HEPARIN SODIUM,PORCINE 5,000 UNIT/ML 1 ML VIAL SQ SCH ×3 (00:18→17:56)
[2018-12-22 02:21] LABS: Glucose,Whole Blood 118 mg/dL (75-99)
[2018-12-22] MEDS: INSULIN ASPART (NovoLOG) 100 UNIT/ML VIAL SQ SCH ×8 (02:32→21:06)
[2018-12-22] MEDS: NOREPINEPHRINE 4 MG in SODIUM CHLORIDE 0.9% 250 ML IV SCH (02:33)
[2018-12-22 05:49] LABS: Basophils % (A) 0 %; Eosinophils # (A) 0.1 k/uL (0-0.7); Eosinophils % (A) 1 %; HCT 23.2 % (39.0-53.0); HGB 7.8 gm/dL (13.0-17.5); Lymphocytes # (A) 0.9 k/uL (1.0-4.8); Lymphocytes % (A) 9 %; MCH 28.1 pg (25.0-35.0); MCHC 33.5 g/dL (31.0-37.0); MCV 83.8 fL (80.0-100.0); Mean Platelet Volume 8.7; Monocytes # (A) 0.4 k/uL (0-1.0); Monocytes % (A) 4 %; Neutrophils # (A) 8.6 k/uL (1.3-7.7); Neutrophils % (A) 85 %; Platelet Count 137 k/uL (150-450); RBC 2.77 m/uL (4.30-5.90); RDW 13.9 % (11.5-15.5); WBC 10.1 k/uL (3.8-10.6)
[2018-12-22 06:00] LABS: Calcium 7.8 mg/dL (8.4-10.2); Magnesium 1.9 mg/dL (1.6-2.3); Phosphorus 3.3 mg/dL (2.5-4.5); Potassium 3.7 mmol/L (3.5-5.1)
[2018-12-22 07:00] LABS: Glucose,Whole Blood 138 mg/dL (75-99)
--- NOTE | 2018-12-22 07:18 | XR ---
Low back pain. Endocrine none. Dextroscoliosis of the lumbar spine. Demonstrate no pars interarticularis defect within normal limits . Intervertebral disc is narrowing at L4-L5 and L5-S1 endplate sclerosis and slight facet arthropathy is present from L3 through S1. Multilevel small anterior osteophytes are seen. Malalignment in lumba r spine. Moderate multilevel degenerative disc disease in the lumbar spine and slight dextroscoliosis . Sternotomy clips are noted. Cholecystectomy
[2018-12-22] MEDS: BUDESONIDE 0.5 MG/2 ML NEBU INHALATION SCH ×2 (07:47→19:28)
[2018-12-22] MEDS: IPRATROPIUM-ALBUTEROL 3 ML NEB INHALATION SCH ×4 (07:47→19:28)
[2018-12-22] MEDS: ASPIRIN 325 MG TAB PO SCH (07:55)
[2018-12-22] MEDS: INSULIN DETEMIR (LEVEMIR) 100 UNIT/ML SYR SQ SCH (07:55)
[2018-12-22] MEDS: SPIRONOLACTONE 25 MG TAB PO SCH (07:56)
[2018-12-22] MEDS: PANTOPRAZOLE 40 MG TABLET PO SCH (07:56)
[2018-12-22] MEDS: FUROSEMIDE 40 MG TAB PO SCH (07:57)
[2018-12-22] MEDS: CLOPIDOGREL 75 MG TAB PO SCH (07:57)
[2018-12-22] MEDS: CARVEDILOL 3.125 MG TAB PO SCH (07:57)
[2018-12-22] MEDS: ESCITALOPRAM 10 MG TAB PO SCH (07:57)
[2018-12-22] MEDS: FLUTICASONE 50MCG/SPRAY NASAL 16GM EA NOSTRIL SCH (07:57)
[2018-12-22 12:01] LABS: Glucose,Whole Blood 252 mg/dL (75-99)
--- NOTE | 2018-12-22 13:57 | P.PN ---
Subjective Progress Note Date: 12/22/18 A pleasant 63-year-old male patient who was visiting from [place] and he developed chest pain and initially went to [facility] where he was diagnosed having a subacute ST elevation inferior wall myocardial infarction with lateral and posterior extension. The patient got transferred to our hospital for further evaluation and management. The patient is known to have diabetes, hypertension and chronic renal failure and the patient has chronic stage 4 kidney disease. Was immediately taken to the [facility]. The patient was an acute cardiogenic shock. Left ventricular end-diastolic pressure was measured to be at 44 mmHg. He was intubated electively. Following that a cardiac catheterization was done and the patient was found to have total occlusion of the distal circumflex with a dominant circumflex, critical disease involving the proximal LAD and chronic occlusion of the LAD distally, and Liya was inserted in the left ventricle, successful stenting of the distal circumflex was done with drug-eluting stent. Successful stenting of the LAD was also done with drug-eluting stent. The patient was started on dual antiplatelet agent. The patient was placed on low-dose pressors and currently the patient is on levo fed chronic at 0.01 mg per KG per minute. The patient got transferred to the intensive care unit and the patient was quite sedated on Diprivan This morning, the patient is arousable. The patient on an assist-control mode of ventilation. PEEP is at 10 with an FiO2 of 40% tidal volume of 500. The blood gases showed a pH of 7.4-5 with a pCO2 of 38 and pO2 of 219 and this was on FiO2 of 80% pH chest x-ray showing a mild component of pulmonary edema. ET tube is in a good location. In paralyzed in good location. Patient is producing adequate amount of urine output. The patient is warm and has equal and symmetrical pulses in all 4 extremities. His arousable. Follows commands and answering questions appropriately as the Diprivan is being weaned off. The patient has a Impala catheter in his left femoral artery. Creatinine is at 1.9 and stable for now. On 12/21/2018 I'm seeing this patient for a follow-up in the patient will be extubated. The Impala has already been taken out. The patient is able to sit up on a chair. He is currently on 5 L of oxygen by nasal cannula. No chest pain. No cough or sputum production. No chest tightness or wheezing. No fever or chills. He has adequate pulses in all 4 extremities bilaterally. His coagulation profile is within normal. Renal function is also normal with a creatinine of 2.2. Hemoglobin stable at 8.3. T the chest x-ray showed scattered linear infiltrates bilaterally with improved aeration and mild pulmonary vascular congestion. The patient is tolerating his diet. No other significant events over the past 24 hours. No cardiac arrhythmias. Echo was noted. Juan Luis infections 40-45% and the patient has some segmental wall motion abnormalities. on 12/22/2018, the patient is feeling of any chest pain. He is sitting up on a chair. On 3 liters of oxygen by nasal cannula. No cough. No sputum production. No chest tightness. No wheezing. He is hemodynamically stable. the renal function is stable with a creatinine of 2.3. The hemoglobin stable at 7.8. The Ariza catheter will be removed. Artline catheter may be removed. The patient has no specific complaints for now. Objective - Vital Signs Vital signs: Vital Signs Temp 98.8 F 12/22/18 12:00 Pulse 90 12/22/18 13:00 Resp 23 12/22/18 13:00 BP 108/61 12/22/18 12:00 Pulse Ox 93 L 12/22/18 13:00 Intake & Output 12/21/18 12/22/18 12/22/18 18:59 06:59 18:59 Intake Total 1639 133 509 Output Total 655 485 390 Balance 984 -352 119 Weight 95.1 kg Intake: IV 39 33 9 right wrist a-line bag 39 33 9 Oral 1600 100 500 Output: Urine 655 485 390 Other: Voiding Method Indwelling Catheter Indwelling Catheter Indwelling Catheter # Bowel Movements 1 ABP, PAP, CO, CI - Last Documented Arterial Blood Pressure 148/61 - Exam The patient appeared well nourished and normally developed. Vital signs as documented. Head exam is unremarkable. No scleral icterus or corneal arcus noted. Neck is without jugular venous distension, thyromegaly, or carotid bruits. Carotid upstrokes are brisk bilaterally. Lungs are clear to auscultation and percussion, and the patient has some limited bibasilar crackles consistent with some pulmonary vascular congestion.. Cardiac exam reveals the PMI to be normally sized and situated. Rhythm is regular. First and second heart sounds normal. No murmurs, rubs or gallops. Abdominal exam reveals normal bowel sounds, no masses, no organomegaly and no aortic enlargement. Extremities are nonedematous and both femoral and pedal pulses are normal.Examination of the skin revealed no evidence of significant rashes, suspicious appearing nevi or other concerning lesions. Neurologically awake and alert and is no focal neurological deficits. - Labs CBC & Chem 7: 12/22/18 05:30 12/22/18 05:30 Labs: Abnormal Lab Results - Last 24 Hours (Table) 12/21/18 12/21/18 12/22/18 Range/Units 17:11 20:29 02:10 RBC (4.30-5.90) m/uL Hgb (13.0-17.5) gm/dL Hct (39.0-53.0) % Plt Count (150-450) k/uL Neutrophils # (1.3-7.7) k/uL Lymphocytes # (1.0-4.8) k/uL BUN (9-20) mg/dL Creatinine (0.66-1.25) mg/dL Glucose (74-99) mg/dL POC Glucose (mg/dL) 210 H 224 H 118 H (75-99) mg/dL Calcium (8.4-10.2) mg/dL 12/22/18 12/22/18 12/22/18 Range/Units 05:30 05:30 06:49 RBC 2.77 L (4.30-5.90) m/uL Hgb 7.8 L (13.0-17.5) gm/dL Hct 23.2 L (39.0-53.0) % Plt Count 137 L (150-450) k/uL Neutrophils # 8.6 H (1.3-7.7) k/uL Lymphocytes # 0.9 L (1.0-4.8) k/uL BUN 34 H (9-20) mg/dL Creatinine 2.38 H (0.66-1.25) mg/dL Glucose 115 H (74-99) mg/dL POC Glucose (mg/dL) 138 H (75-99) mg/dL Calcium 7.8 L (8.4-10.2) mg/dL 12/22/18 Range/Units 11:50 RBC (4.30-5.90) m/uL Hgb (13.0-17.5) gm/dL Hct (39.0-53.0) % Plt Count (150-450) k/uL Neutrophils # (1.3-7.7) k/uL Lymphocytes # (1.0-4.8) k/uL BUN (9-20) mg/dL Creatinine (0.66-1.25) mg/dL Glucose (74-99) mg/dL POC Glucose (mg/dL) 252 H (75-99) mg/dL Calcium (8.4-10.2) mg/dL Microbiology - Last 24 Hours (Table) 12/21/18 00:20 Blood Culture - Preliminary Blood No Growth after 24 hours 12/21/18 00:18 Blood Culture - Preliminary Blood No Growth after 24 hours 12/19/18 23:08 Urine Culture - Final Urine,Voided Assessment and Plan Plan: Assessment [address] segment elevation inferior myocardial wall infarction with lateral and posterior extension, status post cardiac catheterization and stenting of the circumflex and LAD, and the circumflex was a dominant vessel 2 cardiogenic shock secondary to above, status post Impala catheter insertion for hemodynamic support, currently on low dose of norepinephrine infusion for blood pressure control. On 12/21/2018 the Impala has been removed and the patient is hemodynamically stable on metoprolol and the patient is on 5 L of oxygen by nasal cannula and the patient has a limited pulmonary vessel congestion and he would benefit from Lasix. on 12/22/2018, the patient is hemodynamically stable and the patient has no specific complaints. 3 coronary artery disease 4 diabetes mellitus type 2 maintained on insulin outpatient basis 5 chronic stage IV kidney disease, stable creatinine 6 hypertension 7 hyperlipidemia 8 acute hypoxic respiratory failure requiring intubation mechanical ventilation, recovered and the patient has been extubated without any major difficulties currently on 3 L of oxygen by nasal cannula. Plan wean down the FiO2 as tolerated. Discontinue the Ariza catheter. Discontinue the arterial line. Continue same cardiac medication. Aldactone was added to his regimen. He is also taking Lasix 40 mg by mouth daily. We'll continue to follow and the patient may either be discharged or be transferred to a medical surgical floor today. We'll discuss this also with
--- NOTE | 2018-12-22 14:22 | P.PN ---
Subjective Patient is improving day by day No chest discomfort no dizziness lightheadedness or palpitations no chest pain line he sitting comfortably in a chair. On examination blood pressures 111 was 16 108/61 mmHg respirations in the mid 20s Heart rates in the 80s and 90s Afebrile Breath sounds are clear no rhonchi no crackles Heart sounds S1 and S2 are normal no murmurs or gallops no rub Abdomen soft nontender External days warm no edema Impression acute myocardial infarction with cardiac shock Status post coronary stenting Status post impella placement for the procedure which has been removed Chronic kidney disease creatinine 2.38 Suggest Continue statins and dual antiplatelet therapy Maximize heart failure medications Continue low-dose Tone, increase carvedilol to 6.25 mg twice daily Once his renal function stabilizes then I will add low-dose JOVANY inhibitor Continue Lasix by mouth Objective - Vital Signs Vital signs: Vital Signs Temp 98.8 F 12/22/18 12:00 Pulse 90 12/22/18 13:00 Resp 23 12/22/18 13:00 BP 108/61 12/22/18 12:00 Pulse Ox 93 L 12/22/18 13:00 Intake & Output 12/21/18 12/22/18 12/22/18 18:59 06:59 18:59 Intake Total 1639 133 509 Output Total 655 485 390 Balance 984 -352 119 Weight 95.1 kg Intake: IV 39 33 9 right wrist a-line bag 39 33 9 Oral 1600 100 500 Output: Urine 655 485 390 Other: Voiding Method Indwelling Catheter Indwelling Catheter Indwelling Catheter # Bowel Movements 1 ABP, PAP, CO, CI - Last Documented Arterial Blood Pressure 148/61 - Labs CBC & Chem 7: 12/22/18 05:30 12/22/18 05:30 Labs: Abnormal Lab Results - Last 24 Hours (Table) 12/21/18 12/21/18 12/22/18 Range/Units 17:11 20:29 02:10 RBC (4.30-5.90) m/uL Hgb (13.0-17.5) gm/dL Hct (39.0-53.0) % Plt Count (150-450) k/uL Neutrophils # (1.3-7.7) k/uL Lymphocytes # (1.0-4.8) k/uL BUN (9-20) mg/dL Creatinine (0.66-1.25) mg/dL Glucose (74-99) mg/dL POC Glucose (mg/dL) 210 H 224 H 118 H (75-99) mg/dL Calcium (8.4-10.2) mg/dL 12/22/18 12/22/18 12/22/18 Range/Units 05:30 05:30 06:49 RBC 2.77 L (4.30-5.90) m/uL Hgb 7.8 L (13.0-17.5) gm/dL Hct 23.2 L (39.0-53.0) % Plt Count 137 L (150-450) k/uL Neutrophils # 8.6 H (1.3-7.7) k/uL Lymphocytes # 0.9 L (1.0-4.8) k/uL BUN 34 H (9-20) mg/dL Creatinine 2.38 H (0.66-1.25) mg/dL Glucose 115 H (74-99) mg/dL POC Glucose (mg/dL) 138 H (75-99) mg/dL Calcium 7.8 L (8.4-10.2) mg/dL 12/22/18 Range/Units 11:50 RBC (4.30-5.90) m/uL Hgb (13.0-17.5) gm/dL Hct (39.0-53.0) % Plt Count (150-450) k/uL Neutrophils # (1.3-7.7) k/uL Lymphocytes # (1.0-4.8) k/uL BUN (9-20) mg/dL Creatinine (0.66-1.25) mg/dL Glucose (74-99) mg/dL POC Glucose (mg/dL) 252 H (75-99) mg/dL Calcium (8.4-10.2) mg/dL Microbiology - Last 24 Hours (Table) 12/21/18 00:20 Blood Culture - Preliminary Blood No Growth after 24 hours 12/21/18 00:18 Blood Culture - Preliminary Blood No Growth after 24 hours 12/19/18 23:08 Urine Culture - Final Urine,Voided
--- NOTE | 2018-12-22 15:14 | CDI ---
Documentation Clarification Form Date: 12/22/2018 2:44:31 PM From: Merary Bhardwaj Admit Date: 12/19/2018 6:52:00 PM Patient Name: Giacomo Lowe Visit Number: [id number] Discharge Date: ATTENTION: The Clinical Documentation Specialists (CDI) and [facility] Coding Staff appreciate your assistance in clarifying documentation. Please respond to the clarification below the line at the bottom and electronically sign. The CDI & [facility] Coding staff will review the response and follow-up if needed. Please note: Queries are made part of the Legal Health Record. If you have any questions, please contact the author of this message via ITS. Dr. Anton Caputo Heart Failure is documented in your Progress Notes dated 12/21/2018 and 12/22/2018 History/Risk Factors:63 y/o male presents to [facility] as a transfer from [facility] for Acute ST elevation [place] with ST elevations in the inferior and lateral leads. Clinical Indicators: Medical History HTN; DM2; CKD4; Anxiety; Depression; VS/Pulse OX: 127/52 93 98.2 34 95% 5L Echocardiogram Results:left ventricular systolic function is mild moderately impaired with an EF between 40-45% . Mild aortic valve regurgitation; mild tricupid regurgitation; Mild mitral regurgitation. Chest X Ray: Scattered linear infiltrates persist. Improved aeration noted bilaterally.Mild pulmonary venous congestion is noted to persist 12/21/2018 Treatment: Lasix, Coreg, In your professional opinion, can you please clarify the acuity and type of CHF if known? * Systolic Heart Failure: * Acute * Chronic * Acute on Chronic * Systolic & Diastolic Heart Failure: * Acute * Chronic * Acute on Chronic Heart Failure * Unable to Determine * Other, please specify MTDD
--- NOTE | 2018-12-22 16:40 | P.PN ---
Subjective She is admitted for non-ST elevation myocardial infarction status post cardiac catheterization and stenting to distal circumflex and proximal LAD, status post Impella device, and acute hypoxic respiratory failure secondary to pulmonary edema which improved patient is on 1 L oxygen patient had ejection fraction of 40-45% patient is otherwise clinically doing well. Patient is presently under stepdown care. Possibly of discharge tomorrow. Constitutional: Denied any fatigue denied any fever. Cardio vascular: denied any chest pain, palpitations Gastrointestinal denied any nausea vomiting Pulmonary: Denied any shortness of breath cough Neurologic denied any new focal deficits All inpatient medications were reviewed and appropriate changes in these medications as dictated in the interval history and assessment and plan. Objective - Vital Signs Vital signs: Vital Signs Temp 99.5 F 12/22/18 16:01 Pulse 90 12/22/18 16:01 Resp 30 H 12/22/18 16:01 BP 113/62 12/22/18 16:01 Pulse Ox 92 L 12/22/18 16:01 Intake & Output 12/21/18 12/22/18 12/22/18 18:59 06:59 18:59 Intake Total 8349 109 8499 Output Total 655 485 590 Balance 984 -352 419 Weight 95.1 kg Intake: IV 39 33 9 right wrist a-line bag 39 33 9 Oral 7489 777 6414 Output: Urine 655 485 590 Other: Voiding Method Indwelling Catheter Indwelling Catheter Indwelling Catheter # Bowel Movements 1 ABP, PAP, CO, CI - Last Documented Arterial Blood Pressure 148/61 - Exam PHYSICAL EXAMINATION: GENERAL: The patient is alert and oriented x3, not in any acute distress. Well developed, well nourished. HEENT: Pupils are round and equally reacting to light. EOMI. No scleral icterus. No conjunctival pallor. Normocephalic, atraumatic. No pharyngeal erythema. No thyromegaly. CARDIOVASCULAR: S1 and S2 present. No murmurs, rubs, or gallops. PULMONARY: Chest is clear to auscultation, no wheezing or crackles. ABDOMEN: Soft, nontender, nondistended, normoactive bowel sounds. No palpable organomegaly. MUSCULOSKELETAL: No joint swelling or deformity. EXTREMITIES: No cyanosis, clubbing, or pedal edema. NEUROLOGICAL: Gross neurological examination did not reveal any focal deficits. SKIN: No rashes. - Labs CBC & Chem 7: 12/22/18 05:30 12/22/18 05:30 Labs: Abnormal Lab Results - Last 24 Hours (Table) 12/21/18 12/21/18 12/22/18 Range/Units 17:11 20:29 02:10 RBC (4.30-5.90) m/uL Hgb (13.0-17.5) gm/dL Hct (39.0-53.0) % Plt Count (150-450) k/uL Neutrophils # (1.3-7.7) k/uL Lymphocytes # (1.0-4.8) k/uL BUN (9-20) mg/dL Creatinine (0.66-1.25) mg/dL Glucose (74-99) mg/dL POC Glucose (mg/dL) 210 H 224 H 118 H (75-99) mg/dL Calcium (8.4-10.2) mg/dL 12/22/18 12/22/18 12/22/18 Range/Units 05:30 05:30 06:49 RBC 2.77 L (4.30-5.90) m/uL Hgb 7.8 L (13.0-17.5) gm/dL Hct 23.2 L (39.0-53.0) % Plt Count 137 L (150-450) k/uL Neutrophils # 8.6 H (1.3-7.7) k/uL Lymphocytes # 0.9 L (1.0-4.8) k/uL BUN 34 H (9-20) mg/dL Creatinine 2.38 H (0.66-1.25) mg/dL Glucose 115 H (74-99) mg/dL POC Glucose (mg/dL) 138 H (75-99) mg/dL Calcium 7.8 L (8.4-10.2) mg/dL 12/22/18 Range/Units 11:50 RBC (4.30-5.90) m/uL Hgb (13.0-17.5) gm/dL Hct (39.0-53.0) % Plt Count (150-450) k/uL Neutrophils # (1.3-7.7) k/uL Lymphocytes # (1.0-4.8) k/uL BUN (9-20) mg/dL Creatinine (0.66-1.25) mg/dL Glucose (74-99) mg/dL POC Glucose (mg/dL) 252 H (75-99) mg/dL Calcium (8.4-10.2) mg/dL Microbiology - Last 24 Hours (Table) 12/21/18 00:20 Blood Culture - Preliminary Blood No Growth after 24 hours 12/21/18 00:18 Blood Culture - Preliminary Blood No Growth after 24 hours Assessment and Plan Plan: Assessment and Plan Assessment: Acute ST elevated [place] status post cardiac cath additional stenting of distal circumflex and LAD Multivessel coronary artery disease. Cardiogenic shock. status post Impala insertion and pressor support Diabetes type 2 insulin-dependent. A1c 7.0 Hypertension Hyperlipidemia Acute on Chronic kidney disease stage IV. Creatinine level 2.38. Baseline creatinine not known. On admission his serum creatinine was 1.9 Obesity with a BMI 30.8 Leukocytosis. Likely reactive. Rule out infection DVT prophylaxis with heparin subcu Plan: Patient will be continued on aspirin statins and Lasix and Coreg. Avoid hypotension due to chronic kidney disease with possible acute component. Contin ue with insulin dosing with Levemir 36 units daily along with 6 units of NovoLog 3 times a day before meals along with sliding scale. Blood sugars are bit elevated but leave the insulin scale and titrate upon discharge Currently patient is off pressor support. Blood pressure is maintained. We halina l follow up CBC. Other recommendations based on the clinical course. Pulmonary cardiology and nephrology is on board. Prognosis is guarded.
[2018-12-22 16:58] LABS: Glucose,Whole Blood 218 mg/dL (75-99)
[2018-12-22] MEDS: CARVEDILOL 6.25 MG TAB PO SCH (17:53)
[2018-12-22 20:30] LABS: Glucose,Whole Blood 131 mg/dL (75-99)
[2018-12-22] MEDS: ATORVASTATIN 80 MG TAB PO SCH (21:06)
[2018-12-22] MEDS: ALPRAZolam 0.25 MG TAB PO SCH (21:07)
[2018-12-22] MEDS: ZOLPIDEM 5 MG TAB PO PRN (21:07)
--- NOTE | 2018-12-22 21:45 | PN ---
PROGRESS NOTE Patient is seen for followup for acute kidney injury on top of chronic kidney disease. His creatinine is slightly higher today at 2.38; however, his previous creatinine was 2.3 in September of 2018. Patient has had good urine output. He denies any significant chest pains or shortness of breath. On examination this morning, blood pressure was 120/63, heart rate of 90 per minute. Patient is afebrile. EXAMINATION OF THE HEART: S1 and S2. EXAMINATION OF LUNGS: Bilateral breath sounds are heard. ABDOMEN: Soft, non-tender. Examination of lower extremities shows no significant edema. PREVENTIVE MAINTENANCE ENGINEER exam is grossly intact. Labs show sodium 138, potassium 3.7, BUN 34, serum creatinine 2.38, calcium 7.8, hemoglobin 7.8 g/dL. ASSESSMENT: 1. Chronic kidney disease, NKF stage IV, secondary to nephrosclerosis, currently stable. Patient did have mild acute kidney injury, but his current creatinine is at its baseline from September as outpatient. 2. Status post cardiac catheterization and coronary stent placement. 3. Status post acute myocardial infarction. 4. Cardiogenic shock, status post Impella. 5. Anemia with no active bleeding noted. PLAN: Repeat labs in a.m. Okay to maintain patient on Lasix. Patient is advised to follow up as outpatient with his primary military communications specialist in [place]. MMODL / IJN: [id number] /
[2018-12-22 23:19] LABS: Glucose,Whole Blood 58 mg/dL (75-99)
[2018-12-22 23:34] LABS: Glucose,Whole Blood 80 mg/dL (75-99)
[2018-12-23] MEDS: HEPARIN SODIUM,PORCINE 5,000 UNIT/ML 1 ML VIAL SQ SCH ×3 (00:15→16:31)
[2018-12-23] MEDS: NOREPINEPHRINE 4 MG in SODIUM CHLORIDE 0.9% 250 ML IV SCH (00:16)
[2018-12-23 00:25] LABS: Glucose,Whole Blood 95 mg/dL (75-99)
[2018-12-23] MEDS: INSULIN ASPART (NovoLOG) 100 UNIT/ML VIAL SQ SCH ×7 (02:05→17:44)
[2018-12-23 02:16] LABS: Glucose,Whole Blood 136 mg/dL (75-99)
[2018-12-23 06:09] LABS: Basophils % (A) 0 %; Eosinophils # (A) 0.2 k/uL (0-0.7); Eosinophils % (A) 2 %; HGB 7.6 gm/dL (13.0-17.5); Hypochromasia Slight; Lymphocytes % (A) 10 %; MCH 26.6 pg (25.0-35.0); MCHC 30.2 g/dL (31.0-37.0); MCV 88.1 fL (80.0-100.0); Mean Platelet Volume 8.2; Monocytes # (A) 0.5 k/uL (0-1.0); Monocytes % (A) 5 %; Neutrophils # (A) 8.1 k/uL (1.3-7.7); Neutrophils % (A) 82 %; Platelet Count 155 k/uL (150-450); RBC 2.84 m/uL (4.30-5.90); RDW 13.6 % (11.5-15.5); WBC 9.9 k/uL (3.8-10.6)
[2018-12-23 06:21] LABS: Calcium 7.8 mg/dL (8.4-10.2); Magnesium 1.9 mg/dL (1.6-2.3); Phosphorus 3.2 mg/dL (2.5-4.5); Potassium 4.4 mmol/L (3.5-5.1)
[2018-12-23 07:03] LABS: Glucose,Whole Blood 157 mg/dL (75-99)
[2018-12-23] MEDS: CLOPIDOGREL 75 MG TAB PO SCH (08:04)
[2018-12-23] MEDS: ESCITALOPRAM 10 MG TAB PO SCH (08:04)
[2018-12-23] MEDS: ASPIRIN 325 MG TAB PO SCH (08:04)
[2018-12-23] MEDS: SPIRONOLACTONE 25 MG TAB PO SCH (08:04)
[2018-12-23] MEDS: FUROSEMIDE 40 MG TAB PO SCH (08:05)
[2018-12-23] MEDS: CARVEDILOL 6.25 MG TAB PO SCH ×2 (08:05→16:31)
[2018-12-23] MEDS: PANTOPRAZOLE 40 MG TABLET PO SCH (08:05)
[2018-12-23] MEDS: FLUTICASONE 50MCG/SPRAY NASAL 16GM EA NOSTRIL SCH (08:10)
[2018-12-23] MEDS: BUDESONIDE 0.5 MG/2 ML NEBU INHALATION SCH (08:45)
[2018-12-23] MEDS: IPRATROPIUM-ALBUTEROL 3 ML NEB INHALATION SCH ×2 (08:45→12:20)
[2018-12-23] MEDS ORDERED: INSULIN DETEMIR (LEVEMIR) 100 UNIT/ML SYR SQ SCH (09:00)
[2018-12-23] MEDS ORDERED: LOSARTAN 25 MG TAB PO SCH (09:15)
--- NOTE | 2018-12-23 09:37 | P.PN ---
Subjective Progress Note Date: 12/23/18 A pleasant 63-year-old male patient who was visiting from [place] and he developed chest pain and initially went to [facility] where he was diagnosed having a subacute ST elevation inferior wall myocardial infarction with lateral and posterior extension. The patient got transferred to our hospital for further evaluation and management. The patient is known to have diabetes, hypertension and chronic renal failure and the patient has chronic stage 4 kidney disease. Was immediately taken to the [facility]. The patient was an acute cardiogenic shock. Left ventricular end-diastolic pressure was measured to be at 44 mmHg. He was intubated electively. Following that a cardiac catheterization was done and the patient was found to have total occlusion of the distal circumflex with a dominant circumflex, critical disease involving the proximal LAD and chronic occlusion of the LAD distally, and Liya was inserted in the left ventricle, successful stenting of the distal circumflex was done with drug-eluting stent. Successful stenting of the LAD was also done with drug-eluting stent. The patient was started on dual antiplatelet agent. The patient was placed on low-dose pressors and currently the patient is on levo fed chronic at 0.01 mg per KG per minute. The patient got transferred to the intensive care unit and the patient was quite sedated on Diprivan This morning, the patient is arousable. The patient on an assist-control mode of ventilation. PEEP is at 10 with an FiO2 of 40% tidal volume of 500. The blood gases showed a pH of 7.4-5 with a pCO2 of 38 and pO2 of 219 and this was on FiO2 of 80% pH chest x-ray showing a mild component of pulmonary edema. ET tube is in a good location. In paralyzed in good location. Patient is producing adequate amount of urine output. The patient is warm and has equal and symmetrical pulses in all 4 extremities. His arousable. Follows commands and answering questions appropriately as the Diprivan is being weaned off. The patient has a Impala catheter in his left femoral artery. Creatinine is at 1.9 and stable for now. On 12/21/2018 I'm seeing this patient for a follow-up in the patient will be extubated. The Impala has already been taken out. The patient is able to sit up on a chair. He is currently on 5 L of oxygen by nasal cannula. No chest pain. No cough or sputum production. No chest tightness or wheezing. No fever or chills. He has adequate pulses in all 4 extremities bilaterally. His coagulation profile is within normal. Renal function is also normal with a creatinine of 2.2. Hemoglobin stable at 8.3. T the chest x-ray showed scattered linear infiltrates bilaterally with improved aeration and mild pulmonary vascular congestion. The patient is tolerating his diet. No other significant events over the past 24 hours. No cardiac arrhythmias. Echo was noted. Juan Luis infections 40-45% and the patient has some segmental wall motion abnormalities. on 12/22/2018, the patient is feeling of any chest pain. He is sitting up on a chair. On 3 liters of oxygen by nasal cannula. No cough. No sputum production. No chest tightness. No wheezing. He is hemodynamically stable. the renal function is stable with a creatinine of 2.3. The hemoglobin stable at 7.8. The Ariza catheter will be removed. Artline catheter may be removed. The patient has no specific complaints for now. On 12/23/2018 the patient is off oxygen and currently is on room air. No chest pain. No shortness of breath. No other complaints. Hemodynamic is stable. His renal function shows a creatinine of 2.2. Hemoglobin is at 7.6. Potassium level is at 4.4. He was started on Aldactone yesterday by cardiology and the plan is to start low-dose losartan today. He is also on Coreg. He is also on a combination of aspirin and Plavix. Objective - Vital Signs Vital signs: Vital Signs Temp 98.0 F 12/23/18 08:00 Pulse 83 12/23/18 08:00 Resp 22 12/23/18 08:00 BP 120/69 12/23/18 08:00 Pulse Ox 97 12/23/18 08:00 Intake & Output 12/22/18 12/23/18 12/23/18 18:59 06:59 18:59 Intake Total 1509 350 500 Output Total 590 240 Balance 919 110 500 Weight 96.8 kg Intake: IV 9 right wrist a-line bag 9 Oral 1500 350 500 Output: Urine 590 240 Other: Voiding Method Toilet Urinal Toilet Urinal Urinal # Voids 1 # Bowel Movements 1 1 ABP, PAP, CO, CI - Last Documented Arterial Blood Pressure 148/61 - Exam The patient appeared well nourished and normally developed. Vital signs as documented. Head exam is unremarkable. No scleral icterus or corneal arcus noted. Neck is without jugular venous distension, thyromegaly, or carotid bruits. Carotid upstrokes are brisk bilaterally. Lungs are clear to auscultation and percussion, and the patient has some limited bibasilar crackles consistent with some pulmonary vascular congestion.. Cardiac exam reveals the PMI to be normally sized and situated. Rhythm is regular. First and second heart sounds normal. No murmurs, rubs or gallops. Abdominal exam reveals normal bowel sounds, no masses, no organomegaly and no aortic enlargement. Extremities are nonedematous and both femoral and pedal pulses are normal.Examination of the skin revealed no evidence of significant rashes, suspicious appearing nevi or other concerning lesions. Neurologically awake and alert and is no focal lazarus rological deficits. - Labs CBC & Chem 7: 12/23/18 05:02 12/23/18 05:02 Labs: Abnormal Lab Results - Last 24 Hours (Table) 12/22/18 12/22/18 12/22/18 Range/Units 11:50 16:47 20:18 RBC (4.30-5.90) m/uL Hgb (13.0-17.5) gm/dL Hct (39.0-53.0) % MCHC (31.0-37.0) g/dL Neutrophils # (1.3-7.7) k/uL BUN (9-20) mg/dL Creatinine (0.66-1.25) mg/dL Glucose (74-99) mg/dL POC Glucose (mg/dL) 252 H 218 H 131 H (75-99) mg/dL Calcium (8.4-10.2) mg/dL 12/22/18 12/23/18 12/23/18 Range/Units 23:08 02:04 05:02 RBC 2.84 L (4.30-5.90) m/uL Hgb 7.6 L (13.0-17.5) gm/dL Hct 25.0 L (39.0-53.0) % MCHC 30.2 L (31.0-37.0) g/dL Neutrophils # 8.1 H (1.3-7.7) k/uL BUN (9-20) mg/dL Creatinine (0.66-1.25) mg/dL Glucose (74-99) mg/dL POC Glucose (mg/dL) 58 L 136 H (75-99) mg/dL Calcium (8.4-10.2) mg/dL 12/23/18 12/23/18 Range/Units 05:02 06:51 RBC (4.30-5.90) m/uL Hgb (13.0-17.5) gm/dL Hct (39.0-53.0) % MCHC (31.0-37.0) g/dL Neutrophils # (1.3-7.7) k/uL BUN 35 H (9-20) mg/dL Creatinine 2.22 H (0.66-1.25) mg/dL Glucose 114 H (74-99) mg/dL POC Glucose (mg/dL) 157 H (75-99) mg/dL Calcium 7.8 L (8.4-10.2) mg/dL Microbiology - Last 24 Hours (Table) 12/21/18 00:20 Blood Culture - Preliminary Blood No Growth after 48 hours 12/21/18 00:18 Blood Culture - Preliminary Blood No Growth after 48 hours Assessment and Plan Plan: Assessment [address] segment elevation inferior myocardial wall infarction with lateral and posterior extension, status post cardiac catheterization and stenting of the circumflex and LAD, and the circumflex was a dominant vessel 2 cardiogenic shock secondary to above, recovered 3 coronary artery disease 4 diabetes mellitus type 2 maintained on insulin outpatient basis 5 chronic stage IV kidney disease, stable creatinine 6 hypertension 7 hyperlipidemia 8 acute hypoxic respiratory failure requiring intubation mechanical ventilation, recovered a she is on room air oxygen Plan Continue same treatment. Losartan was added a low-dose. Monitor the potassium level. Monitored blood pressure. Possible home today
--- NOTE | 2018-12-23 11:31 | PN ---
PROGRESS NOTE Patient is seen for followup for chronic kidney disease. He is currently doing well. He is probably going home today. Patient is status post cardiac cath and coronary stent placement. No chest pain. Renal function is very stable. Serum creatinine did go up slightly. However, he is at his baseline. PHYSICAL EXAMINATION: This morning, blood pressure is 120/69, heart rate 83 per minute. He is afebrile. Examination of the heart, S1, S2. Examination of the lungs, bilateral breath sounds are heard. Abdomen is soft, nontender. Exam of lower extremities shows trace edema bilaterally. LINING PRINTER exam is grossly intact. LABS: Show sodium 139, potassium 4.4, BUN 35, serum creatinine 2.2, hemoglobin 7.6 g/dL. ASSESSMENT: 1. Acute kidney injury associated with the recent myocardial infarction and the IV contrast, appears to be stable, renal function is at baseline. 2. Chronic kidney disease stage IV secondary to nephrosclerosis. 3. Status post acute myocardial infarction, status post cardiac catheterization and coronary stent placement x2. 4. Cardiomyopathy. 5. Cardiogenic shock, status post implant left catheter and currently improved. 6. Mild volume overload. 7. Anemia with no active bleeding noted. I will give him a dose of Aranesp prior to discharge. PLAN: Aranesp x1 prior to discharge and maintain patient on once a day dosing of oral Lasix. He is advised to follow up as outpatient with his electric motor repairer in [place]. MMODL / SHAKEELN: [id number] /
[2018-12-23 11:58] LABS: Glucose,Whole Blood 199 mg/dL (75-99)
[2018-12-23] MEDS ORDERED: DARBEPOETIN ALFA 40 MCG/0.4 ML SYRINGE SQ SCH (12:00)
--- NOTE | 2018-12-23 15:05 | P.DS ---
Providers Date of admission: 12/19/18 18:52 Attending physician: Breezy Hannah Consults: 12/19/18 18:01 Consult Physician Routine Consulting Provider: [facility] Consult Reason/Comments: Post Interventional patient Do you want consulting provider notified?: Already Contacted Placement Type Exists?: Yes 12/19/18 18:04 Consult Physician Routine Consulting Provider: Izabel Lamb Consult Reason/Comments: renal failure Do you want consulting provider notified?: Yes 12/19/18 18:37 Consult Physician Routine Consulting Provider: Guy Ye Consult Reason/Comments: medical management Do you want consulting provider notified?: Yes 12/19/18 18:38 Consult Physician Stat Consulting Provider: Christopher Mendez Consult Reason/Comments: yes Do you want consulting provider notified?: Yes 12/19/18 21:00 Consult Physician Stat Consulting Provider: Lonnie aGlvez Consult Reason/Comments: icu managment Do you want consulting provider notified?: Already Contacted Primary care physician: Physician Nonstaff Hospital Course: She is admitted for non-ST elevation myocardial infarction status post cardiac catheterization and stenting to distal circumflex and proximal LAD, status post Impella device, and acute hypoxic respiratory failure secondary to pulmonary edema which improved patient is on 1 L oxygen patient had ejection fraction of 40-45% patient is otherwise clinically doing well. Patient is presently under stepdown care. Possibly of discharge tomorrow. 12/23/2018 Patient is clinically doing well multiple changes in medications were made and written prescription for provided by cardiology and patient will be discharged today. Please refer to handwritten scripts by cardiology for further details. PHYSICAL EXAMINATION: GENERAL: The patient is alert and oriented x3, not in any acute distress. Well developed, well nourished. HEENT: Pupils are round and equally reacting to light. EOMI. No scleral icterus. No conjunctival pallor. Normocephalic, atraumatic. No pharyngeal erythema. No thyromegaly. CARDIOVASCULAR: S1 and S2 present. No murmurs, rubs, or gallops. PULMONARY: Chest is clear to auscultation, no wheezing or crackles. ABDOMEN: Soft, nontender, nondistended, normoactive bowel sounds. No palpable organomegaly. MUSCULOSKELETAL: No joint swelling or deformity. EXTREMITIES: No cyanosis, clubbing, or pedal edema. NEUROLOGICAL: Gross neurological examination did not reveal any focal deficits. SKIN: No rashes. Assessment and Plan Assessment: Acute ST elevated WI status post cardiac cath additional stenting of distal circumflex and LAD Multivessel coronary artery disease. Cardiogenic shock. status post Impala insertion and pressor support Diabetes type 2 insulin-dependent. A1c 7.0 Hypertension Hyperlipidemia Acute on Chronic kidney disease stage IV. Creatinine level 2.38. Baseline creatinine not known. On admission his serum creatinine was 1.9 Obesity with a BMI 30.8 Leukocytosis. Likely reactive. Plan - Discharge Summary New Discharge Prescriptions: New Furosemide [Lasix] 40 mg PO DAILY tab Ranitidine HCl [Zantac] 150 mg PO BID #60 tab Continue Insulin Aspart [NovoLOG Flexpen] 6 units SQ AC-TID Fluticasone Nasal [place] [Flonase Nasal [place]] 1 spray EA NOSTRIL DAILY Rosuvastatin Calcium [Crestor] 5 mg PO HS Potassium Chloride ER [K-Dur 20] 20 meq PO DAILY Escitalopram [Lexapro] 10 mg PO DAILY ALPRAZolam [Xanax] 0.25 mg PO HS Insulin Glargine,Hum.rec.anlog [Lantus Solostar] 36 unit SQ DAILY Saxagliptin HCl [Onglyza] 5 mg PO DAILY Aspirin EC [Ecotrin Low Dose] 81 mg PO Q48H Discontinued amLODIPine [Norvasc] 10 mg PO DAILY Omeprazole [PriLOSEC] 20 mg PO DAILY Metoprolol Tartrate [Lopressor] 100 mg PO BID Losartan [Cozaar] 50 mg PO DAILY Furosemide [Lasix] 40 mg PO BID Discharge Medication List ALPRAZolam [Xanax] 0.25 mg PO HS 12/19/18 [History] Aspirin EC [Ecotrin Low Dose] 81 mg PO Q48H 12/19/18 [History] Escitalopram [Lexapro] 10 mg PO DAILY 12/19/18 [History] Fluticasone Nasal [place] [Flonase Nasal [place]] 1 spray EA NOSTRIL DAILY 12/19/18 [History] Insulin Aspart [NovoLOG Flexpen] 6 units SQ AC-TID 12/19/18 [History] Insulin Glargine,Hum.rec.anlog [Lantus Solostar] 36 unit SQ DAILY 12/19/18 [ History] Potassium Chloride ER [K-Dur 20] 20 meq PO DAILY 12/19/18 [History] Rosuvastatin Calcium [Crestor] 5 mg PO HS 12/19/18 [History] Saxagliptin HCl [Onglyza] 5 mg PO DAILY 12/19/18 [History] Furosemide [Lasix] 40 mg PO DAILY tab 12/23/18 [Rx] Ranitidine HCl [Zantac] 150 mg PO BID #60 tab 12/23/18 [Rx] Follow up Appointment(s)/Referral(s): Kameron Huggins MD [STAFF PHYSICIAN] - 3 Days Anton Caputo MD [STAFF PHYSICIAN] - 3 Days
[2018-12-23 16:31] VITALS: PULSE 81; RESP 16; TEMP 98.5
[2018-12-23 17:30] LABS: Glucose,Whole Blood 161 mg/dL (75-99)
[2018-12-23 17:46] VITALS: BP 118/99
--- NOTE | 2018-12-23 20:05 | P.PN ---
Subjective Mr. Lowe is doing very well. He is sitting in a chair. He has no shortness of breath dizziness lightheadedness palpitations or chest discomfort breathing is better. He had a comfortable night. No orthopnea Blood pressure 114 066. His mercury respirations 16 pulse rate in the 70s Breath sounds are clear no rhonchi no crackles Heart sounds. Normal no murmurs or gallops or rub Impression acute myocardial infarction Cartage and shock Treated him with an impella device for management of cardiac shock and subsequently revascularized He is coming along very well and we are discharging him today as long as his blood pressure remained stable after adding losartan. I'm adding 12.5 mg by mouth daily I will see him again as an outpatient on Thursday Continue dual antiplatelet therapy statins beta blockers and angiotensin receptor blockers Objective - Vital Signs Vital signs: Vital Signs Temp 98.5 F 12/23/18 16:27 Pulse 81 12/23/18 16:27 Resp 16 12/23/18 16:27 BP 118/99 12/23/18 17:45 Pulse Ox 96 12/23/18 17:01 Intake & Output 12/23/18 12/23/18 12/24/18 06:59 18:59 06:59 Intake Total 350 1000 Output Total 240 Balance 110 1000 Weight 96.8 kg Intake: Oral 350 1000 Output: Urine 240 Other: Voiding Method Urinal Toilet Urinal # Voids 1 1 # Bowel Movements 1 1 ABP, PAP, CO, CI - Last Documented Arterial Blood Pressure 148/61 - Labs CBC & Chem 7: 12/23/18 05:02 12/23/18 05:02 Labs: Abnormal Lab Results - Last 24 Hours (Table) 12/22/18 12/22/18 12/23/18 Range/Units 20:18 23:08 02:04 RBC (4.30-5.90) m/uL Hgb (13.0-17.5) gm/dL Hct (39.0-53.0) % MCHC (31.0-37.0) g/dL Neutrophils # (1.3-7.7) k/uL BUN (9-20) mg/dL Creatinine (0.66-1.25) mg/dL Glucose (74-99) mg/dL POC Glucose (mg/dL) 131 H 58 L 136 H (75-99) mg/dL Calcium (8.4-10.2) mg/dL 12/23/18 12/23/18 12/23/18 Range/Units 05:02 05:02 06:51 RBC 2.84 L (4.30-5.90) m/uL Hgb 7.6 L (13.0-17.5) gm/dL Hct 25.0 L (39.0-53.0) % MCHC 30.2 L (31.0-37.0) g/dL Neutrophils # 8.1 H (1.3-7.7) k/uL BUN 35 H (9-20) mg/dL Creatinine 2.22 H (0.66-1.25) mg/dL Glucose 114 H (74-99) mg/dL POC Glucose (mg/dL) 157 H (75-99) mg/dL Calcium 7.8 L (8.4-10.2) mg/dL 12/23/18 12/23/18 Range/Units 11:46 17:18 RBC (4.30-5.90) m/uL Hgb (13.0-17.5) gm/dL Hct (39.0-53.0) % MCHC (31.0-37.0) g/dL Neutrophils # (1.3-7.7) k/uL BUN (9-20) mg/dL Creatinine (0.66-1.25) mg/dL Glucose (74-99) mg/dL POC Glucose (mg/dL) 199 H 161 H (75-99) mg/dL Calcium (8.4-10.2) mg/dL Microbiology - Last 24 Hours (Table) 12/21/18 00:20 Blood Culture - Preliminary Blood No Growth after 48 hours 12/21/18 00:18 Blood Culture - Preliminary Blood No Growth after 48 hours
== END 2018-12-23 18:28 | disposition home or self-care (01) | DRG 215 ==
LOC: 3SCARD 15:28 → 2SICU 17:47 → OBSVTOIN 18:52
PROVIDERS: ADMIT Internal Medicine; ATTEND Internal Medicine
PROC: 4A023N7 Measurement of Cardiac Sampling and Pressure, Left Heart, Percutaneous Approach (ICD-10-PCS; 2018-12-19)
PROC: B2111ZZ Fluoroscopy of Multiple Coronary Arteries using Low Osmolar Contrast (ICD-10-PCS; 2018-12-19)
PROC: B41G1ZZ Fluoroscopy of Left Lower Extremity Arteries using Low Osmolar Contrast (ICD-10-PCS; 2018-12-19)
PROC: B41F1ZZ Fluoroscopy of Right Lower Extremity Arteries using Low Osmolar Contrast (ICD-10-PCS; 2018-12-19)
PROC: 5A1935Z Respiratory Ventilation, Less than 24 Consecutive Hours (ICD-10-PCS; 2018-12-19)
PROC: 0BH17EZ Insertion of Endotracheal Airway into Trachea, Via Natural or Artificial Opening (ICD-10-PCS; 2018-12-19)
PROC: 027135Z Dilation of Coronary Artery, Two Arteries with Two Drug-eluting Intraluminal Devices, Percutaneous Approach (ICD-10-PCS; principal; 2018-12-19 15:33)
PROC: 02HA3RZ Insertion of Short-term External Heart Assist System into Heart, Percutaneous Approach (ICD-10-PCS; 2018-12-19 15:33)
PROC: 5A0221D Assistance with Cardiac Output using Impeller Pump, Continuous (ICD-10-PCS; 2018-12-19 15:33)
PROC: 02PA3RZ Removal of Short-term External Heart Assist System from Heart, Percutaneous Approach (ICD-10-PCS; 2018-12-19 15:33)
DX: I21.19 ST elevation (STEMI) myocardial infarction involving other coronary artery of inferior wall (principal); J96.01 Acute respiratory failure with hypoxia; R57.0 Cardiogenic shock; I42.9 Cardiomyopathy, unspecified; N17.9 Acute kidney failure, unspecified; N18.4 Chronic kidney disease, stage 4 (severe); I13.0 Hypertensive heart and chronic kidney disease with heart failure and stage 1 through stage 4 chronic kidney disease, or unspecified chronic kidney disease; I21.29 ST elevation (STEMI) myocardial infarction involving other sites; E11.22 Type 2 diabetes mellitus with diabetic chronic kidney disease; D64.9 Anemia, unspecified; E66.9 Obesity, unspecified; E78.5 Hyperlipidemia, unspecified; F32.9 Major depressive disorder, single episode, unspecified; F41.9 Anxiety disorder, unspecified; I25.10 Atherosclerotic heart disease of native coronary artery without angina pectoris; K21.9 Gastro-esophageal reflux disease without esophagitis; R31.9 Hematuria, unspecified; D72.829 Elevated white blood cell count, unspecified; Z68.30 Body mass index [BMI] 30.0-30.9, adult; Z79.4 Long term (current) use of insulin; Z79.82 Long term (current) use of aspirin; Z79.899 Other long term (current) drug therapy; Z87.891 Personal history of nicotine dependence; I50.9 Heart failure, unspecified
CPT/HCPCS: 36600; 71045; 80048; 81001; 82805; 83036; 83605; 83735; 84100; 85025; 85610; 85730; 87040; 87070; 87075; 87086; 87205; 93306; 93458; 94002; 94003; 94640; C1874